=== PATIENT | female | born 1960 | race Caucasian/White ===

== ENCOUNTER → 2019-10-30 14:55 | Outpatient (BNVA) | payer MEDICARE, OTHER, SELFPAY | PROVIDERS: Referring Provider Dermatology; Visit Provider Internal Medicine Cardiovascular Disease | DX: E78.5 Hyperlipidemia, unspecified (principal); I25.10 Atherosclerotic heart disease of native coronary artery without angina pectoris; E11.9 Type 2 diabetes mellitus without complications | CPT/HCPCS: 80053; 80061 ==

== ENCOUNTER 2019-11-29 09:48 | Outpatient (CLI) | payer MEDICARE, OTHER, SELFPAY ==
[2019-11-29 10:43] LABS: Creatinine Urine, Random 60 mg/dL (28-217); Microalbumin Random Urine 14 ug/dL (0-20)
[2019-11-29 10:53] LABS: Microalbum Creatinine Ratio Ur 233 mg/dL (0-20)
[2019-11-29 12:01] LABS: Estmated Average Glucose 226; Hemoglobin A1C 9.5 % (4.0-6.0)
== END 2019-11-29 09:49 | disposition home or self-care (01) ==
LOC: LAB 09:54
PROVIDERS: Visit Provider Internal Medicine
DX: E11.9 Type 2 diabetes mellitus without complications (principal)
CPT/HCPCS: 36415; 82044; 83036

== ENCOUNTER → 2019-12-04 09:02 | Outpatient (BNVA) | payer MEDICARE, OTHER, SELFPAY | PROVIDERS: Visit Provider Internal Medicine | DX: E11.40 Type 2 diabetes mellitus with diabetic neuropathy, unspecified (principal); Z78.9 Other specified health status; E11.29 Type 2 diabetes mellitus with other diabetic kidney complication; E11.65 Type 2 diabetes mellitus with hyperglycemia; R80.9 Proteinuria, unspecified; E16.0 Drug-induced hypoglycemia without coma; T38.3X5A Adverse effect of insulin and oral hypoglycemic [antidiabetic] drugs, initial encounter; E11.42 Type 2 diabetes mellitus with diabetic polyneuropathy; E11.59 Type 2 diabetes mellitus with other circulatory complications; I25.10 Atherosclerotic heart disease of native coronary artery without angina pectoris; K76.0 Fatty (change of) liver, not elsewhere classified; E78.2 Mixed hyperlipidemia; I10 Essential (primary) hypertension; E66.01 Morbid (severe) obesity due to excess calories; Z68.41 Body mass index [BMI] 40.0-44.9, adult | CPT/HCPCS: 99205 ==

== ENCOUNTER → 2019-12-26 09:48 | Outpatient (BNVA) | payer MEDICARE, OTHER, SELFPAY | PROVIDERS: Referring Provider Dermatology; Visit Provider Dermatology | DX: L71.9 Rosacea, unspecified (principal); L82.1 Other seborrheic keratosis; D23.10 Other benign neoplasm of skin of unspecified eyelid, including canthus | CPT/HCPCS: 67700; 99203 ==

== ENCOUNTER → 2020-01-11 09:58 | Outpatient (BNVA) | payer MEDICARE, OTHER, SELFPAY | PROVIDERS: Visit Provider Internal Medicine | DX: E11.29 Type 2 diabetes mellitus with other diabetic kidney complication (principal); E11.42 Type 2 diabetes mellitus with diabetic polyneuropathy; E11.59 Type 2 diabetes mellitus with other circulatory complications; I10 Essential (primary) hypertension; I25.10 Atherosclerotic heart disease of native coronary artery without angina pectoris; E11.65 Type 2 diabetes mellitus with hyperglycemia; E66.01 Morbid (severe) obesity due to excess calories; Z68.41 Body mass index [BMI] 40.0-44.9, adult; E78.2 Mixed hyperlipidemia; K76.0 Fatty (change of) liver, not elsewhere classified; R80.9 Proteinuria, unspecified; Z78.9 Other specified health status | CPT/HCPCS: 99214 ==

== ENCOUNTER → 2020-02-20 15:22 | Outpatient (BNVA) | payer MEDICARE, OTHER, SELFPAY | PROVIDERS: Visit Provider Specialist | DX: M79.642 Pain in left hand (principal) | CPT/HCPCS: 73130 ==

== ENCOUNTER → 2020-02-25 13:03 | Outpatient (BNVA) | payer MEDICARE, OTHER, SELFPAY | PROVIDERS: Visit Provider Specialist | DX: Z11.59 Encounter for screening for other viral diseases (principal) | CPT/HCPCS: 87635 ==

== ENCOUNTER 2020-02-29 05:59 | Day surgery (SDC) | payer MEDICARE, OTHER, SELFPAY ==
[2020-02-28 13:41] VITALS: BMI 39.9
[2020-02-29 06:24] VITALS: BP 181/87; PULSE 67; RESP 18; TEMP 36.3; O2SAT 94
[2020-02-29] MEDS: sodium chloride 0.9% 1,000 ML 30 ML IV (06:50)
[2020-02-29 06:52] LABS: Glucose Point of Care 193 mg/dL (70-110)
[2020-02-29 06:54] LABS: Basophils # 0.1 10^3/uL (0.0-0.1); Eosinophils # 0.7 10^3/uL (0.0-0.8); Eosinophils % 11.9 %; Hematocrit 42.7 % (37.0-47.0); Hemoglobin 13.8 g/dL (11.5-15.3); Lymphocytes % 32.6 %; Mean Corpuscular HGB Conc 32.3 g/dL (30.0-36.0); Mean Corpuscular Hemoglobin 29.7 pg (28.0-34.0); Mean Corpuscular Volume 91.8 fL (81-99); Mean Platelet Volume 9.5 fL (7.4-10.4); Monocytes # 0.6 10^3/uL (0.2-0.9); Monocytes % 9.9 %; Neutrophils # 2.74 10^3/uL (1.8-7.7); Neutrophils % 44.4 %; Nucleated Red Blood Cells % 0 %; Platelet Count 160 10^3/cmm (130-400); Red Blood Count 4.65 10^6/uL (4.1-5.3); Red Cell Distribution Width 12.8 % (12.1-15.1); White Blood Count 6.2 10^3/uL (4.0-10.0)
--- NOTE | 2020-02-29 06:55 | P.ANESASSM_ITS ---
Pre-Anesthetic Assessment Pre-Anesthetic Assessment: Height/Weight: Height 1.65 m Weight 108.862 kg Temp Pulse Resp BP Pulse Ox 97.4 F L 67 18 181/87 94 02/29/20 06:24 02/29/20 06:24 02/29/20 06:24 02/29/20 06:24 02/29/20 06:24 Preop Diagnosis: Left index and long finger triggering Proposed Procedure: Operation Date: 02/29/20 07:00 Proposed Procedures p Left index and middle finger Trigger Finger Release 36416 M65.30(Left) - Laura Sandoval MD Last intake: Intake Last Liquid Date 02/28/20 Last Liquid Time 23:30 Last Solid Date 02/28/20 Last Solid Time 18:30 Social: Social History: No alcohol and No tobacco Exam: Pre-Anes Outpt Exam: alert, oriented x 3, clear to auscultation bilaterally and regular rate & rhythm Airway: Submandibular: Other (Very limited TMD) Cervical ROM: Other (limited ) MP: 4 Pulmonary: Pulmonary: Sleep apnea CV/HEM: CV/HEM: CAD and HTN : : None reported Hepatic: Hepatic: None reported GI: GI: None reported Metabolic: Metabolic: DM and Morbid obesity Musc/skel: Musc/skel: None reported Neuropsych: Neuropsych: Anxiety Anesthetic Plan: ASA status: 3 Anesthesia: MAC PFSH Anesthesia PFSH: Medical History (Updated 02/22/20 @ 11:01 by Laura Sandoval MD) Coronary artery disease Hyperlipidemia Hypertension Myocardial infarction Surgical History H/O section History of coronary artery stent placement History of hysterectomy Family History Father Myocardial infarction Other CAD (coronary artery disease) Social History Smoking and tobacco status: never smoked Alcohol intake: never Data Anesthesia CBC & Chem 7: 02/29/20 06:23 02/29/20 06:23 Other Labs: Laboratory Results - last 48 hr 02/29/20 02/29/20 06:23 06:49 WBC 6.2 RBC 4.65 Hgb 13.8 Hct 42.7 MCV 91.8 MCH 29.7 MCHC 32.3 RDW 12.8 Plt Count 160 MPV 9.5 Neut % (Auto) 44.4 Lymph % (Auto) 32.6 [place] % (Auto) 9.9 Eos % (Auto) 11.9 Baso % (Auto) 1.0 Neut # (Auto) 2.74 Lymph # (Auto) 2.0 [place] # (Auto) 0.6 Eos # (Auto) 0.7 Baso # (Auto) 0.1 Nucleated RBC % (auto) 0 Nucleated RBCs # 0.0 POC Glucose 193 Cardiac Studies: No Data to Display
--- NOTE | 2020-02-29 06:57 | W.PM.OPSUD ---
Surgery/Procedure H&P Update DATE OF PROCEDURE: February 29, 2020 DATE H&P PERFORMED: 02/20/20 H&P UPDATE INFORMATION: I have reviewed H&P completed within last 30 days, I have examined patient prior to procedure, No changes to prior documentation and H&P is in [facility] [place] [facility] EMR on date indicated PREOP DIAGNOSIS: Left index and long finger triggering PLANNED PROCEDURE: Operation Date: 02/29/20 07:00 Proposed Procedures p Left index and middle finger Trigger Finger Release 46578 M65.30(Left) - Laura Sandoval MD Related Problem List Diagnoses (1) Acquired trigger finger of left middle finger: (2) Acquired trigger finger of left index finger:
[2020-02-29] MEDS: CELEcoxib 200 mg Capsule 400 MG PO (07:06)
[2020-02-29 07:34] LABS: Alanine Aminotransferase 103 U/L (0-33); Albumin Level 3.8 g/dL (3.5-5.2); Alkaline Phosphatase 119 IU/L (35-105); Blood Urea Nitrogen 20 mg/dL (8-23); Calcium 9.1 mg/dL (8.5-10.5); Carbon Dioxide 23 mmol/L (22-29); Chloride 101 mmol/L (98-107); Glomerular Filtration Rate 101.6 mL/min (90-130); Glucose 199 mg/dL (65-115); Osmolality Calculated 292 mOsm/kg (285-295); Sodium 137 mmol/L (136-145); Total Bilirubin 0.4 mg/dL (0.15-1.2); Total Protein 6.8 g/dL (6.6-8.7)
[2020-02-29 07:38] LABS: Anion Gap 17.4 (5-19); Aspartate Amino Transferase 88 U/L (0-32); Potassium 4.4 mmol/L (3.5-5.1)
[2020-02-29 08:18] VITALS: BP 170/87; PULSE 56; RESP 16; TEMP 36.3; O2SAT 95
[2020-02-29 08:24] VITALS: BP 146/73; PULSE 55; RESP 18; O2SAT 96
--- NOTE | 2020-02-29 08:28 | P.OP_ITS ---
Operative Report Date of procedure: February 29, 2020 Pre-op Diagnosis: Left index and long finger triggering Post-op diagnosis: same Procedure Done: Trigger finger release left long and index fingers Pathology: none sent Surgeon: Laura Sandoval Buffing Turner And Counter: None Anesthesia: MAC (With Anu block) Estimated blood loss (mL): 2 Tourniquet time (min): 42 Tourniquet time: At 250 mmHg IV fluids (mL): 900 Urine output (mL): 0 Urine output: No Jeter Complications: None Findings: Significant compression across the flexor tendons of the index and long fingers. Condition: stable Disposition: same day Brief History: This 60-year-old woman presented with complaints of triggering of the left index and middle fingers. She had had previous trigger finger releases elsewhere on other fingers. She wished to proceed with the release. Risks and complications were discussed. Consents were signed. The patient was consented for the surgical procedure. Procedure: Patient was brought to the operating theater. She was placed on the operating room table. A [place] block was administered without difficulty. Patient tolerated it well. 2 g of Ancef was administered prophylactically. A tourniquet was placed high on the arm and was elevated for the [place] block. This followed exsanguination of the arm. Tourniquet time was 42 minutes. Surgical pause was performed prior to commencement of the surgical procedure. At the time of the surgical pause we identified the site and side of surgery. We also identified the patient's identity and appropriate administration of IV antibiotics. Following the surgical pause, an incision was made along the distal palmar crease beneath the index and long fingers. Dissection continued through the skin to the subcutaneous tissues using a scalpel. Blunt dissection was then utilized to spread soft tissues and allow access to the A1 wm. Each A1 wm was i dentified. It was then incised longitudinally and sharply using a knife. This was accomplished without difficulty and atraumatically. Once the A1 pulleys were released, tendons were brought up out of the wound and evaluated. There were no gross masses on the tendons, and there was no further triggering. Tendons were returned to normal position. We then irrigated the wound and subsequently closed it with 3-0 nylon with an interrupted mattress type suture. Following closure of the wound, the wound was injected with 3 mL of bupivacaine into the subcutaneous tissues as a local anesthetic. Sterile dressing was then placed consisting of Telfa, Tegaderm, fluffed fluffs, sterile soft roll, and an Jim wrap. The patient was returned to recovery in satisfactory condition. She will be discharged home to follow-up with me in the office. There were no complications and no specimens. Associated Problem List Diagnoses (1) Acquired trigger finger of left middle finger: (2) Acquired trigger finger of left index finger:
[2020-02-29 08:43] VITALS: BP 142/74; PULSE 64; RESP 22; O2SAT 94
[2020-02-29] MEDS: HYDROcodone-acetaminophen 5-325 mg Tablet 1 TAB PO (08:57)
--- NOTE | 2020-02-29 14:37 | ANE.PACU2 ---
Inpatient post-anesthesia follow up: Airway intact: Yes Vital signs: Temperature 97.3 F Pulse Rate 64 Respiratory Rate 22 Blood Pressure 142/74 Pulse Oximetry 94 Oxygen Delivery Me thod Room Air Oxygen Flow Rate 3 Fraction of Inspir ed Oxygen Hydration adequate: Yes Nausea and vomiting: No Pain level: 3 Mental status: Baseline
== END 2020-02-29 09:02 | disposition home or self-care (01) ==
PROVIDERS: Visit Provider Specialist
PROC: (CPT 26055; principal; 2020-02-29 07:00)
DX: M65.332 Trigger finger, left middle finger (principal); M65.322 Trigger finger, left index finger; I25.10 Atherosclerotic heart disease of native coronary artery without angina pectoris; I10 Essential (primary) hypertension; E11.9 Type 2 diabetes mellitus without complications; I25.2 Old myocardial infarction; E66.01 Morbid (severe) obesity due to excess calories; Z68.39 Body mass index [BMI] 39.0-39.9, adult
CPT/HCPCS: 26055; 12345; 36415; 36416; 80053; 82962; 85025; 96374; 96375; J0131; J0690; J2250; J2704; J3010; J3490; J7030

== ENCOUNTER 2020-04-08 09:17 | Outpatient (CLI) | payer MEDICARE, OTHER, SELFPAY ==
--- NOTE | 2020-04-08 09:37 | US_ITS ---
WS: [id number] Complete ABDOMINAL ULTRASOUND HISTORY: ELEVATED LFT'S COMPARISON: None available. Technically very difficult and limited evaluation due to body habitus. Liver: 17.5 cm in length. Mildly enlarged liver with hepatic steatosis. The entire liver is not well visualized. No bile duct dilatation. Gallbladder: Normally distended with no gallstones, wall thickening or pericholecystic fluid. Gallbladder wall thickness: 0.3 cm. Pancreas: Poorly visualized. No abnormality identified. CBD: 0.3 cm. Right kidney: 12.4 cm x 5.0 cm x 5.9 cm. No mass, cortical thickening or hydronephrosis. Left kidney: 13.6 cm x 5.8 cm x 5.5 cm. No mass, cortical thickening or hydronephrosis. Spleen: Normal size and echogenicity. Abdominal aorta and IVC are within normal limits. No ascites. US/US abdomen complete* [id number] IMPRESSION: 1. Mild hepatic steatosis and hepatomegaly. The entire liver is not well visua lized. 2. No abnormalities are identified quality
== END 2020-04-08 09:18 | disposition home or self-care (01) ==
LOC: RAD 09:29
DX: R94.5 Abnormal results of liver function studies (principal); K76.0 Fatty (change of) liver, not elsewhere classified; R16.0 Hepatomegaly, not elsewhere classified
CPT/HCPCS: 76700

== ENCOUNTER → 2020-04-16 10:09 | Outpatient (BNVA) | payer MEDICARE, OTHER, SELFPAY | PROVIDERS: Visit Provider Internal Medicine | DX: E11.29 Type 2 diabetes mellitus with other diabetic kidney complication (principal); R80.9 Proteinuria, unspecified; E11.319 Type 2 diabetes mellitus with unspecified diabetic retinopathy without macular edema; E11.42 Type 2 diabetes mellitus with diabetic polyneuropathy; E11.59 Type 2 diabetes mellitus with other circulatory complications; I25.10 Atherosclerotic heart disease of native coronary artery without angina pectoris; E11.65 Type 2 diabetes mellitus with hyperglycemia; E66.01 Morbid (severe) obesity due to excess calories; Z68.41 Body mass index [BMI] 40.0-44.9, adult; E78.2 Mixed hyperlipidemia; I10 Essential (primary) hypertension; K76.0 Fatty (change of) liver, not elsewhere classified | CPT/HCPCS: 99214 ==

== ENCOUNTER 2020-05-19 07:53 | Outpatient (CLI) | payer MEDICARE, OTHER, SELFPAY ==
--- NOTE | 2020-05-19 07:59 | MM_ITS ---
WS: [id number] BILATERAL DIGITAL SCREENING MAMMOGRAPHY WITH CAD CLINICAL INFORMATION: SCREENING HISTORY: Screening mammogram. No current complaints. COMPARISON: TECHNIQUE: Bilateral CC and MLO views. FINDINGS: Scattered fibroglandular densities bilaterally. No suspicious focal mass, asymmetry, calcifications, or architectural distortion. No evidence of malignancy. Punctate calcifications. Vascular calcificati ons bilaterally. MM/[place] [id number] IMPRESSION: BI-RADS: 2-Benign FOLLOW UP: 1 Year Follow-up Recommend return to annual screening mammography.
== END 2020-05-19 07:54 | disposition home or self-care (01) ==
LOC: RADSHAW 07:56
DX: Z12.31 Encounter for screening mammogram for malignant neoplasm of breast (principal)
CPT/HCPCS: 77067

== ENCOUNTER → 2020-09-26 15:44 | Outpatient (BNVA) | payer MEDICARE, OTHER, SELFPAY | PROVIDERS: PCP Clinical Nurse Specialist Adult Health; Visit Provider Surgery | DX: Z01.812 Encounter for preprocedural laboratory examination (principal); Z20.822 Contact with and (suspected) exposure to COVID-19 | CPT/HCPCS: 87635 ==

== ENCOUNTER 2020-10-01 06:19 | Day surgery (SDC) | payer MEDICARE, OTHER, SELFPAY ==
[2020-09-29 12:52] VITALS: BMI 38.7
[2020-10-01 06:50] VITALS: BP 202/82; PULSE 61; RESP 18; TEMP 36.2; O2SAT 97
--- NOTE | 2020-10-01 06:54 | W.PM.OPSFHP ---
Same Day Surgery H&P Indication for Procedure/HPI DATE OF PROCEDURE: October 01, 2020 CHIEF COMPLAINT/INDICATIONFOR SURGICAL PROCEDURE: Screening colonoscopy PREOP DIAGNOSIS: Screening colonoscopy PLANNED PROCEDRUE: Operation Date: 10/01/20 07:30 Proposed Procedures p Colonoscopy 55947 Z12.11(Not Applicable) - Lyndon Cabrera MD This is a 60 years old female patient with history of obesity of a current BMI of 30.4 and weighs 238 pounds and associated history of diabetic retinopathy, hypoglycemia due to insulin, fatty liver, uncontrolled diabetes mellitus with microalbuminuria, diabetic neuropathy, chronic artery disease due to type 2 diabetes mellitus, history of hypertension and hyperlipidemia. Patient is referred to me for screening colonoscopy last one she had when she was 49 years of age and was reported as normal. Per patient's description. Patient denies any bleeding per rectum or colon cancer history or nonintentional weight loss. Patient used to be on blood thinners for her coronary artery stent placement before 3 years but she was taken off per cardiac services. Interim history 10/01/2020 Patient comes today for screening colonoscopy ROS All systems have been reviewed negative except as per the above or per problem list Medications/Allergies* Home Medications Medication Instructions Recorded Confirmed Type albuterol sulfate 90 mcg/actuation 2 inh INHALATION Q6H PRN 11/02/19 10/01/20 History breath activated powder inhaler aspirin 81 mg tablet,delayed 81 mg PO DAILY 11/02/19 10/01/20 History release furosemide 40 mg tablet 40 mg PO DAILY PRN 11/02/19 10/01/20 History losartan 50 mg tablet 50 mg PO BID 11/02/19 10/01/20 History multivitamin 1 tab PO DAILY 11/02/19 10/01/20 History potassium chloride 10 mEq 10 meq PO DAILY PRN tab 11/02/19 10/01/20 History tablet,extended release pregabalin 50 mg capsule 50 mg PO DAILY PRN cap 11/02/19 10/01/20 History trazodone 50 mg tablet 50 mg PO DAILY PRN 11/02/19 10/01/20 History insulin regular hum U-500 conc See Rx Instructions SUBCUT .COMPLEX 01/29/20 10/01/20 History [Humulin R U-500 (Conc) Kwikpen] elderberry fruit and flower 1 ea PO DAILY 09/23/20 10/01/20 History calcium carb-mag ox-zinc gluc 1 tab PO DAILY 09/29/20 10/01/20 History metoprolol tartrate 25 mg PO BID 09/29/20 10/01/20 History Allergies/Adverse Reactions Allergy/AdvReac Type Severity Reaction Status Date / Time latex Allergy ALGY-Rash Verified 10/01/20 06:55 Hdbzewb-Non-Zzh Reductase AdvReac Unknown Verified 10/01/20 06:55 Inhibitor Pertinent History/Comorbid Conditions* Medical History (Updated 08/14/20 @ 10:58 by Lyndon Cabrera MD) Coronary artery disease Hyperlipidemia Hypertension Myocardial infarction Surgical History (Updated 12/04/19 @ 09:26 by Santos Arguello MD) H/O section History of coronary artery stent placement History of hysterectomy Family History (Updated 10/30/19 @ 14:06 by Janis Conde RN) CAD (coronary artery disease) Myocardial infarction Father Social History Smoking and tobacco status: never smoked Alcohol intake: never Pertinent Exam Findings alert, oriented x 3, clear to auscultation bilaterally, regular rate & rhythm and procedure specific exam findings (Abdominal examination nontender nondistended soft obese) BMI 39 Recommendations Surgery/Procedure today (Colonoscopy with possible biopsy) Other Plans: Plan of care; After thorough history and physical examination and reviewing the chart, plan to perform screening colonoscopy. I discussed with the patient in details the risks,benefits,alternatives and indications.The risk of aspiration, bleeding, soft tissue injury, perforation of the colon and other potential concomitant complications were explained to the patient in details,also the potential need for Laproscoy/Laparotomy to repair any related complications including but not limited to colectomy and or Closotomy.The patient understood this well and did agree to proceed. Rationale was carefully and clearly discussed with the patient.Appropriate informed consent have been reviewed and signed All questions have been answered and all concerns have been addressed to patient's satisfaction. Verbal and written Instructions were given to the patient for colonoscopy prep Coding Level of Care Code Acute Political Researcher for Natalee Doyle
[2020-10-01 07:06] LABS: Glucose Point of Care 208 mg/dL (70-110)
[2020-10-01] MEDS: sodium chloride 0.9% 1,000 ML 30 ML IV (07:10)
--- NOTE | 2020-10-01 07:29 | ANES.PREANE2 ---
Pre-Anesthetic Assessment Pre-Anesthetic Assessment: Height/Weight: Height 1.68 m Weight 108.862 kg Temp Pulse Resp BP Pulse Ox 97.2 F L 61 18 202/82 97 10/01/20 06:50 10/01/20 06:50 10/01/20 06:50 10/01/20 06:50 10/01/20 06:50 Preop Diagnosis: Screening colonoscopy Proposed Procedure: Operation Date: 10/01/20 07:30 Proposed Procedures p Colonoscopy 43524 Z12.11(Not Applicable) - Lyndon Cabrera MD Was Beta Alana taken within 24 hours: Yes Was Clonidine taken within 24 hours: N/A Last intake: Intake Last Liquid Date 09/30/20 Last Solid Date 09/29/20 Social: Social History: No alcohol and No tobacco Exam: Pre-Anes Outpt Exam: alert, oriented x 3, clear to auscultation bilaterally and regular rate & rhythm Airway: Submandibular: WNL Cervical ROM: WNL MP: 2 Dentition: Full CV/HEM: CV/HEM: CAD (stent), HTN and MA Metabolic: Metabolic: DM, Hyperlipidemia and Morbid obesity Anesthetic Plan: ASA status: 3 Anesthesia: MAC Risk of > 500 ml blood loss (7ml/kg in children): No PFSH Anesthesia PFSH: Medical History Coronary artery disease Hyperlipidemia Hypertension Myocardial infarction Surgical History H/O section History of coronary artery stent placement History of hysterectomy Family History Father Myocardial infarction Other CAD (coronary artery disease) Social History Smoking and tobacco status: never smoked Alcohol intake: never Data Anesthesia Other Labs: Laboratory Results - last 48 hr 10/01/20 07:01 POC Glucose 208 H Cardiac Studies: No Data to Display
[2020-10-01 07:54] VITALS: BP 123/66; PULSE 58; RESP 16; TEMP 36.6; O2SAT 95
[2020-10-01 08:09] VITALS: BP 125/61; PULSE 72; RESP 18; TEMP 36.6; O2SAT 98
--- NOTE | 2020-10-01 13:56 | ANE.PACU2 ---
Inpatient post-anesthesia follow up: Airway intact: Yes Vital signs: Temperature 97.8 F Pulse Rate 72 Respiratory Rate 18 Blood Pressure 125/61 Pulse Oximetry 98 Oxygen Delivery Me thod Room Air Oxygen Flow Rate Fraction of Inspir ed Oxygen Hydration adequate: Yes Nausea and vomiting: No Pain level: 1 Mental status: Baseline
== END 2020-10-01 08:20 | disposition home or self-care (01) ==
PROVIDERS: PCP Clinical Nurse Specialist Adult Health; Visit Provider Surgery
PROC: 0DJD8ZZ Inspection of Lower Intestinal Tract, Via Natural or Artificial Opening Endoscopic (ICD-10-PCS; CPT 45378; principal; 2020-10-01 07:30)
DX: Z12.11 Encounter for screening for malignant neoplasm of colon (principal); Z79.82 Long term (current) use of aspirin; I25.10 Atherosclerotic heart disease of native coronary artery without angina pectoris; E78.5 Hyperlipidemia, unspecified; I10 Essential (primary) hypertension; I25.2 Old myocardial infarction; Z82.49 Family history of ischemic heart disease and other diseases of the circulatory system
CPT/HCPCS: 36416; 82962; 96360; G0121; J2704; J7030

== ENCOUNTER 2020-11-21 10:08 | Outpatient (CLI) | payer MEDICARE, OTHER, SELFPAY ==
[2020-11-21 11:09] LABS: Creatinine Urine, Random 85 mg/dL (28-217); Microalbumin Random Urine 29 ug/dL (0-20)
[2020-11-21 11:13] LABS: Microalbum Creatinine Ratio Ur 341 mg/dL (0-20)
[2020-11-21 11:26] LABS: Alanine Aminotransferase 98 U/L (0-33); Alkaline Phosphatase 123 IU/L (35-105); Anion Gap 13.7 (5-19); Aspartate Amino Transferase 95 U/L (0-32); Blood Urea Nitrogen 22 mg/dL (8-23); Calcium 9.2 mg/dL (8.5-10.5); Carbon Dioxide 27 mmol/L (22-29); Chloride 102 mmol/L (98-107); Chol HDL Ratio 4.91 mg/dL (0.0-4.40); Cholesterol 211 mg/dL (0-200); Globulin 3.1 g/dL (1.3-4.6); Glomerular Filtration Rate 85.1 mL/min (90-130); Glucose 221 mg/dL (65-115); HDL Cholesterol 43 mg/dL (60-100); LDL Cholesterol Calculated 142 mg/dL (50-129); Osmolality Calculated 296 mOsm/kg (285-295); Potassium 4.7 mmol/L (3.5-5.1); Sodium 138 mmol/L (136-145); Total Bilirubin 0.5 mg/dL (0.15-1.2); Total Protein 7.1 g/dL (6.6-8.7); Triglycerides 131 mg/dL (0-150)
[2020-11-21 11:30] LABS: Estmated Average Glucose 220; Hemoglobin A1C 9.3 % (4.0-6.0)
== END 2020-11-21 10:09 | disposition home or self-care (01) ==
LOC: LAB 10:16
PROVIDERS: PCP Clinical Nurse Specialist Adult Health; Visit Provider Internal Medicine
DX: E11.29 Type 2 diabetes mellitus with other diabetic kidney complication (principal); E11.319 Type 2 diabetes mellitus with unspecified diabetic retinopathy without macular edema; E11.42 Type 2 diabetes mellitus with diabetic polyneuropathy; E11.65 Type 2 diabetes mellitus with hyperglycemia; E16.0 Drug-induced hypoglycemia without coma; R80.9 Proteinuria, unspecified; R94.5 Abnormal results of liver function studies; T38.3X5A Adverse effect of insulin and oral hypoglycemic [antidiabetic] drugs, initial encounter
CPT/HCPCS: 36415; 80053; 80061; 82044; 83036

== ENCOUNTER → 2021-05-12 10:20 | Outpatient (BNVA) | payer MEDICARE, OTHER, SELFPAY | PROVIDERS: PCP Clinical Nurse Specialist Adult Health; Visit Provider Internal Medicine | DX: E11.319 Type 2 diabetes mellitus with unspecified diabetic retinopathy without macular edema (principal); E11.29 Type 2 diabetes mellitus with other diabetic kidney complication; E11.65 Type 2 diabetes mellitus with hyperglycemia; E11.42 Type 2 diabetes mellitus with diabetic polyneuropathy; E11.59 Type 2 diabetes mellitus with other circulatory complications; K76.0 Fatty (change of) liver, not elsewhere classified; R80.9 Proteinuria, unspecified; I25.10 Atherosclerotic heart disease of native coronary artery without angina pectoris; E78.2 Mixed hyperlipidemia; E66.01 Morbid (severe) obesity due to excess calories; Z78.9 Other specified health status; Z68.41 Body mass index [BMI] 40.0-44.9, adult; Z79.4 Long term (current) use of insulin | CPT/HCPCS: 99214 ==

== ENCOUNTER → 2021-08-10 08:10 | Outpatient (BNVA) | payer MEDICARE, OTHER, SELFPAY | PROVIDERS: Visit Provider Internal Medicine | DX: E11.59 Type 2 diabetes mellitus with other circulatory complications (principal); E11.29 Type 2 diabetes mellitus with other diabetic kidney complication; E11.65 Type 2 diabetes mellitus with hyperglycemia; E11.42 Type 2 diabetes mellitus with diabetic polyneuropathy; E11.319 Type 2 diabetes mellitus with unspecified diabetic retinopathy without macular edema; I25.10 Atherosclerotic heart disease of native coronary artery without angina pectoris; R80.9 Proteinuria, unspecified; K76.0 Fatty (change of) liver, not elsewhere classified; E78.2 Mixed hyperlipidemia; E66.01 Morbid (severe) obesity due to excess calories; Z68.41 Body mass index [BMI] 40.0-44.9, adult; I11.0 Hypertensive heart disease with heart failure; Z78.9 Other specified health status; Z79.4 Long term (current) use of insulin | CPT/HCPCS: 99214 ==

== ENCOUNTER → 2022-01-19 07:44 | Outpatient (BNVA) | payer MEDICARE, OTHER, SELFPAY | PROVIDERS: PCP Clinical Nurse Specialist Adult Health; Visit Provider Clinical Nurse Specialist Adult Health | DX: E78.5 Hyperlipidemia, unspecified (principal); I10 Essential (primary) hypertension; E11.319 Type 2 diabetes mellitus with unspecified diabetic retinopathy without macular edema; E11.59 Type 2 diabetes mellitus with other circulatory complications; E66.01 Morbid (severe) obesity due to excess calories; E78.2 Mixed hyperlipidemia; I25.10 Atherosclerotic heart disease of native coronary artery without angina pectoris; K76.0 Fatty (change of) liver, not elsewhere classified; Z68.41 Body mass index [BMI] 40.0-44.9, adult; Z78.9 Other specified health status; E16.0 Drug-induced hypoglycemia without coma; T38.3X5A Adverse effect of insulin and oral hypoglycemic [antidiabetic] drugs, initial encounter | CPT/HCPCS: 80053; 80061; 83036 ==

== ENCOUNTER → 2022-01-20 10:31 | Outpatient (BNVA) | payer MEDICARE, OTHER, SELFPAY | PROVIDERS: PCP Clinical Nurse Specialist Adult Health; Visit Provider Internal Medicine | DX: E11.59 Type 2 diabetes mellitus with other circulatory complications (principal); E11.29 Type 2 diabetes mellitus with other diabetic kidney complication; E11.65 Type 2 diabetes mellitus with hyperglycemia; E11.319 Type 2 diabetes mellitus with unspecified diabetic retinopathy without macular edema; E11.42 Type 2 diabetes mellitus with diabetic polyneuropathy; I25.10 Atherosclerotic heart disease of native coronary artery without angina pectoris; R80.9 Proteinuria, unspecified; E78.5 Hyperlipidemia, unspecified; E78.2 Mixed hyperlipidemia; K76.0 Fatty (change of) liver, not elsewhere classified; E66.01 Morbid (severe) obesity due to excess calories; Z68.41 Body mass index [BMI] 40.0-44.9, adult; Z78.9 Other specified health status; Z79.4 Long term (current) use of insulin; Z79.84 Long term (current) use of oral hypoglycemic drugs | CPT/HCPCS: 99214 ==

== ENCOUNTER → 2022-04-14 08:50 | Outpatient (BNVA) | payer MEDICARE, OTHER, SELFPAY | PROVIDERS: PCP Clinical Nurse Specialist Adult Health; Visit Provider Clinical Nurse Specialist Adult Health | DX: E16.0 Drug-induced hypoglycemia without coma (principal); T38.3X5A Adverse effect of insulin and oral hypoglycemic [antidiabetic] drugs, initial encounter; Z78.9 Other specified health status; K76.0 Fatty (change of) liver, not elsewhere classified; E11.29 Type 2 diabetes mellitus with other diabetic kidney complication; E11.65 Type 2 diabetes mellitus with hyperglycemia; R80.9 Proteinuria, unspecified; Z91.89 Other specified personal risk factors, not elsewhere classified; E66.01 Morbid (severe) obesity due to excess calories; Z68.41 Body mass index [BMI] 40.0-44.9, adult; I10 Essential (primary) hypertension; E78.5 Hyperlipidemia, unspecified; E78.2 Mixed hyperlipidemia | CPT/HCPCS: 80053; 80061; 83036; 85025 ==

== ENCOUNTER → 2022-07-09 08:15 | Outpatient (BNVA) | payer MEDICARE, OTHER, SELFPAY | PROVIDERS: PCP Clinical Nurse Specialist Adult Health; Visit Provider Clinical Nurse Specialist Adult Health | DX: E11.29 Type 2 diabetes mellitus with other diabetic kidney complication (principal); E11.59 Type 2 diabetes mellitus with other circulatory complications; E11.65 Type 2 diabetes mellitus with hyperglycemia; R80.9 Proteinuria, unspecified; E78.5 Hyperlipidemia, unspecified | CPT/HCPCS: 80053; 80061; 82043; 83036 ==

== ENCOUNTER → 2022-07-14 12:58 | Outpatient (BNVA) | payer MEDICARE, OTHER, SELFPAY | PROVIDERS: PCP Clinical Nurse Specialist Adult Health; Visit Provider Internal Medicine | DX: E11.42 Type 2 diabetes mellitus with diabetic polyneuropathy (principal); E11.29 Type 2 diabetes mellitus with other diabetic kidney complication; E11.65 Type 2 diabetes mellitus with hyperglycemia; E11.319 Type 2 diabetes mellitus with unspecified diabetic retinopathy without macular edema; E11.59 Type 2 diabetes mellitus with other circulatory complications; R80.9 Proteinuria, unspecified; E78.2 Mixed hyperlipidemia; I25.10 Atherosclerotic heart disease of native coronary artery without angina pectoris; K76.0 Fatty (change of) liver, not elsewhere classified; E66.01 Morbid (severe) obesity due to excess calories; Z68.41 Body mass index [BMI] 40.0-44.9, adult; Z78.9 Other specified health status; Z79.4 Long term (current) use of insulin; Z79.84 Long term (current) use of oral hypoglycemic drugs | CPT/HCPCS: 99214 ==

== ENCOUNTER 2022-08-04 13:54 | Outpatient (CLI) | payer MEDICARE, OTHER, SELFPAY ==
--- NOTE | 2022-08-04 14:30 | USCV_ITS ---
Romi Salmeron Age: 62 Gender: F : 1960 Exam Date: 08/04/2022 14:36 Ordering Phys: Gracie West MD ([email or web address]) Technologist: SUSAN Exam Location: [facility] [place] Indication: MURMUR BP: 162 / 89 HR: 66 Rhythm: Sinus Technical Quality: Adequate MEASUREMENTS (Male / Female) Normal Values 2D ECHO LVOT Diameter 2.0 cm LV Ejection Fraction MOD 2C 59.7 % LV Ejection Fraction 2C AL 59.0 % LA Diameter 4.0 cm LA Width 3.7 cm LA Height 6.0 cm RA Width 3.4 cm RA Height 5.3 cm Aorta at Sinotubular Diameter 2.2 cm IVC Diameter 1.8 cm M-MODE Aortic Annulus Diameter 3.1 cm LA Ao Ratio MM 1.2 MV E Point Septal Separation 0.4 cm DOPPLER AV Peak Velocity 165.8 cm/s LVOT Peak Velocity 148.0 cm/s AV Area Cont Eq vti 2.8 cm squared AV Area Cont Eq pk 2.8 cm squared MV Peak Velocity 150.0 cm/s MV Area PHT 2.5 cm squared Mitral E to A Ratio 0.6 MV E' Velocity 51.5 cm/s Mitral E to MV E' Ratio 11.0 Mitral E to LV E' Lateral Ratio 10.1 Mitral E to LV E' Septal Ratio 12.3 TR Peak Velocity 198.8 cm/s TR Peak Gradient 15.8 mmHg TR Mean Velocity 171.0 cm/s TR Mean Gradient 12.1 mmHg TR Velocity Time Integral 67.0 cm TV Peak E Velocity 72.0 cm/s Right Atrial Pressure 3.0 mmHg Pulmonary Artery Systolic Pressu 18.8 mmHg PV Peak Velocity 123.0 cm/s RV Acceleration Time 0.1 s RV Ejection Time 0.3 s RV AcT/ET 0.4 FINDINGS Left Ventricle Normal left ventricular size and systolic function, EF 64 %. No regional wall motion abnormalities. Grade I/IV diastolic dysfunction (abnormal relaxation filling pattern), normal to mildly elevated filling pressures. Right Ventricle The right ventricle is normal in size and function. Right Atrium The right atrium is normal in size. Left Atrium Mildly increased left atrial size. Mitral Valve Thickened mitral valve. Mild mitral annular calcification. Trace mitral valve regurgitation. Aortic Valve Thickened aortic valve. Tricuspid Valve No gross abnormalities noted Pulmonic Valve No gross abnormalities noted Pericardium Normal pericardium without effusion. Aorta Normal ascending aorta dimension. IVC Normal inferior vena cava. CONCLUSIONS Normal left ventricular size and systolic function, EF 64 %. No regional wall motion abnormalities. Grade I/IV diastolic dysfunction (abnormal relaxation filling pattern), normal to mildly elevated filling pressures. Mildly increased left atrial size. Features of aortic valve sclerosis Thickened mitral valve. Mild mitral annular calcification. Trace mitral valve regurgitation. There is no pericardial effusion. There are no intracardiac masses. No similar previous studies are available for comparison Dr Gracie West MD [facility] (Electronically Signed) Final Date: 07 August 2022 16:08 S
== END 2022-08-04 13:55 | disposition home or self-care (01) ==
LOC: RAD 13:58
PROVIDERS: PCP Clinical Nurse Specialist Adult Health; Visit Provider Internal Medicine Cardiovascular Disease
DX: R01.1 Cardiac murmur, unspecified (principal); R06.09 Other forms of dyspnea; I05.9 Rheumatic mitral valve disease, unspecified; E11.59 Type 2 diabetes mellitus with other circulatory complications; I25.10 Atherosclerotic heart disease of native coronary artery without angina pectoris; I10 Essential (primary) hypertension; E78.2 Mixed hyperlipidemia; E11.29 Type 2 diabetes mellitus with other diabetic kidney complication; E11.65 Type 2 diabetes mellitus with hyperglycemia; R80.9 Proteinuria, unspecified; G47.33 Obstructive sleep apnea (adult) (pediatric); E66.01 Morbid (severe) obesity due to excess calories; Z68.41 Body mass index [BMI] 40.0-44.9, adult
CPT/HCPCS: 93306; 99215

== ENCOUNTER → 2023-01-12 10:21 | Outpatient (BNVA) | payer MEDICARE, OTHER, SELFPAY | PROVIDERS: PCP Clinical Nurse Specialist Adult Health; Visit Provider Clinical Nurse Specialist Adult Health | DX: I10 Essential (primary) hypertension (principal); E78.5 Hyperlipidemia, unspecified; E11.29 Type 2 diabetes mellitus with other diabetic kidney complication; E11.42 Type 2 diabetes mellitus with diabetic polyneuropathy; E11.65 Type 2 diabetes mellitus with hyperglycemia; R80.9 Proteinuria, unspecified | CPT/HCPCS: 80053; 80061; 82043; 83036 ==

== ENCOUNTER → 2023-01-13 07:50 | Outpatient (BNVA) | payer MEDICARE, OTHER, SELFPAY | PROVIDERS: PCP Clinical Nurse Specialist Adult Health; Visit Provider Internal Medicine | DX: E11.59 Type 2 diabetes mellitus with other circulatory complications; I25.10 Atherosclerotic heart disease of native coronary artery without angina pectoris; E78.5 Hyperlipidemia, unspecified; E11.29 Type 2 diabetes mellitus with other diabetic kidney complication; E11.65 Type 2 diabetes mellitus with hyperglycemia; R80.9 Proteinuria, unspecified; E78.2 Mixed hyperlipidemia; K76.0 Fatty (change of) liver, not elsewhere classified; E66.01 Morbid (severe) obesity due to excess calories; Z68.41 Body mass index [BMI] 40.0-44.9, adult; Z78.9 Other specified health status; Z79.84 Long term (current) use of oral hypoglycemic drugs | CPT/HCPCS: 99214 ==

== ENCOUNTER → 2023-01-20 10:04 | Outpatient (BNVA) | payer MEDICARE, OTHER, SELFPAY | PROVIDERS: PCP Clinical Nurse Specialist Adult Health; Visit Provider Internal Medicine Cardiovascular Disease | DX: G47.33 Obstructive sleep apnea (adult) (pediatric) (principal); I10 Essential (primary) hypertension; E78.2 Mixed hyperlipidemia; I25.10 Atherosclerotic heart disease of native coronary artery without angina pectoris; R94.5 Abnormal results of liver function studies; E66.01 Morbid (severe) obesity due to excess calories; Z68.41 Body mass index [BMI] 40.0-44.9, adult; E11.29 Type 2 diabetes mellitus with other diabetic kidney complication; E11.65 Type 2 diabetes mellitus with hyperglycemia; R80.9 Proteinuria, unspecified; Z79.4 Long term (current) use of insulin | CPT/HCPCS: 99214 ==

== ENCOUNTER 2023-01-27 06:36 | Observation (INO) | payer MEDICARE, OTHER, SELFPAY ==
[2023-01-27 06:37] VITALS: BP 139/83; PULSE 85; RESP 18; O2SAT 93; BMI 35.5
--- NOTE | 2023-01-27 06:40 | XRR_ITS ---
PROCEDURE INFORMATION: Exam: XR Chest Exam date and time: 01/27/2023 7:03 AM Age: 63 years old Clinical indication: Cough and dyspnea; Additional info: Dyspnea/cough TECHNIQUE: Imaging protocol: Radiologic exam of the chest. Views: 1 view. COMPARISON: No relevant prior studies available. FINDINGS: Lungs: Unremarkable. No consolidation. Pleural spaces: Unremarkable. No pleural effusion. No pneumothorax. Heart/Mediastinum: Unremarkable. No cardiomegaly. Bones/joints: Unremarkable. XR/XR chest 1V portable [id number] IMPRESSION: No acute findings.
--- NOTE | 2023-01-27 06:40 | W.ED.ARRPALP ---
HPI - Arrhythmia/Palpitations General: Chief Complaint: Arrhythmia/Palpitations Stated Complaint: A-fib Time Seen by Provider: 01/27/23 06:39 Source: patient Mode of arrival: EMS History of Present Illness: 63-year-old female known history of coronary artery disease and diabetes mellitus. Presents this morning to the emergency room with complaints of racing heart rate and chest discomfort accompanied by shortness of breath that began earlier this morning. EMS gave the patient 20 mg of IV Cardizem in the field and when she arrives here her rate is well controlled. Model [employer]aster reported that her rate was 150 on the scene. Became controlled in the 70s and 80s after 20 mg of IV Cardizem she says she feels much better. She previously had a cardiac stent in her LAD. She has not had any significant angina or chest discomfort since that was placed in [place]. She had a stress test in January 2019 that showed an ejection fraction of 88% and a normal stress test. MD complaint: rapid heart beat and heart racing Onset (ago): minute(s) Duration: intermittent Context: occurred during rest Associated symptoms: Deny anxiety, cough, diaphoresis, muscle cramps, nausea, paresthesias, pre-syncope, sense of impending doom, short of breath, syncope or vomiting Review of Systems Const: Denies: diaphoresis Card: Denies: syncope or pre-syncope Resp: Denies: dyspnea GI: Denies: nausea or vomiting : Denies: dysuria, urinary frequency or urinary urgency Musc: Denies: muscle cramps Skin/Breast: Denies: rash Psych: Denies: anxiety PFSH ED PFSH: Medical History Coronary artery disease Encounter for screening colonoscopy Repeat screening colonoscopy in 10 years Hyperlipidemia Hypertension Myocardial infarction Rosacea Surgical History H/O section History of carpal tunnel release 2020 History of coronary artery stent placement History of hysterectomy Family History Father Myocardial infarction Other CAD (coronary artery disease) Social History Smoking and tobacco/nicotine status: never used tobacco/nicotine Alcohol intake: never Substance/Drug Use: never Physical Exam Const: GENERAL APPEARANCE: cooperative and comfortable ORIENTATION/CONSCIOUSNESS: Yes awake, Yes oriented to person, Yes oriented to place and Yes oriented to time HENMT: COMMON NORMALS: normocephalic, atraumatic and hearing grossly normal bilaterally HEAD & SCALP: normocephalic and atraumatic Resp: COMMON NORMALS: normal respiratory effort, No retractions, No use of accessory muscles and clear to auscultation bilaterally AUSCULTATION: clear to auscultation bilaterally Cardio: COMMON NORMALS: regular rate and No murmurs present (Cardio) RATE: regular rate RHYTHM: abnormal rhythm irregularly irregular GI: COMMON NORMALS: Soft to palpation and No hepatosplenomegaly present AUSCULTATION: Yes normoactive bowel sounds PALPATION: Yes Soft to palpation, No Tenderness to palpation present (GI), No Guarding due to palpation present (GI) and Yes No hepatosplenomegaly present Extremity: COMMON NORMALS: normal to inspection, capillary refill normal and no calf tenderness GENERAL: Yes edema (Trace) Neuro: SENSORIUM/ORIENTATION: Yes oriented to person, Yes oriented to place and Yes oriented to time Skin: COMMON NORMALS: no rashes or lesions noted GENERAL SKIN EXAM: no rashes or lesions noted Course Vital Signs: Vital signs: Vital Signs Pulse Rate 85 01/27/23 07:34 Respiratory Rate 24 H 01/27/23 07:34 Blood Pressure 119/69 01/27/23 07:34 Pulse Oximetry 92 01/27/23 07:34 Oxygen Delivery Me thod Room Air 01/27/23 07:34 MDM - Arrhythmia/Palpitations Medical Decision Making New onset A-fib, still in atrial fibrillation but rate is controlled. EKG shows A-fib no acute ST changes. No acute changes chest x-ray pending radiology over read. EMS gave her 20 Cardizem IV I did give her her morning carvedilol which she typically takes 12-1/2 twice daily. Rate remains controlled she is not having any chest pain now. Will place on observation. First troponin was 16 serial troponins. Discussed with Dr. Vargas orders written for CSU. Medical Records I reviewed the patient's medical records. Lab Data I reviewed the patient's lab results. 01/27/23 06:43 01/27/23 06:43 Laboratory Results WBC 5.43 10^3/uL (3.29-11.43) 01/27/23 06:43 RBC 5.04 10^6/uL (3.85-5.65) 01/27/23 06:43 Hgb 14.90 g/dL (11.27-16.99) 01/27/23 06:43 Hct 45.0 % (36-47) 01/27/23 06:43 MCV 89.3 fl (85-98) 01/27/23 06:43 MCH 29.6 pg (27-33) 01/27/23 06:43 MCHC 33.1 g/dL (30-55) 01/27/23 06:43 RDW 12.9 % (12.1-15.1) 01/27/23 06:43 Plt Count 163 10^3/cmm (157-399) 01/27/23 06:43 MPV 10.0 fL (7.4-10.4) 01/27/23 06:43 Neut % (Auto) 60.3 % 01/27/23 06:43 Lymph % (Auto) 28.7 % 01/27/23 06:43 [place] % (Auto) 7.0 % 01/27/23 06:43 Eos % (Auto) 2.9 % 01/27/23 06:43 Baso % (Auto) 0.9 % 01/27/23 06:43 Neut # (Auto) 3.27 10^3/uL (1.8-7.7) 01/27/23 06:43 Lymph # (Auto) 1.6 10^3/uL (0.8-4.8) 01/27/23 06:43 [place] # (Auto) 0.4 10^3/uL (0.2-0.9) 01/27/23 06:43 Eos # (Auto) 0.2 10^3/uL (0.0-0.8) 01/27/23 06:43 Baso # (Auto) 0.1 10^3/uL (0.0-0.1) 01/27/23 06:43 Nucleated RBC % (auto) 0 % 01/27/23 06:43 Nucleated RBCs # 0.0 /100WBC 01/27/23 06:43 Sodium 135 mmol/L (136-145) L 01/27/23 06:43 Potassium 4.0 mmol/L (3.5-5.1) 01/27/23 06:43 Chloride 100 mmol/L (98-107) 01/27/23 06:43 Carbon Dioxide 22 mmol/L (22-29) 01/27/23 06:43 Anion Gap 17.0 (5-19) 01/27/23 06:43 BUN 36 mg/dL (8-23) H 01/27/23 06:43 Creatinine 0.8 mg/dL (0.5-0.9) 01/27/23 06:43 GFR Calculation 72.2 mL/min (90-130) L 01/27/23 06:43 Glucose 300 mg/dL (65-115) H 01/27/23 06:43 Calculated Osmolality 300 mOsm/kg (285-295) H 01/27/23 06:43 Calcium 8.7 mg/dL (8.5-10.5) 01/27/23 06:43 Total Bilirubin 0.2 mg/dL (0.15-1.2) 01/27/23 06:43 AST 33 U/L (0-32) H 01/27/23 06:43 ALT 41 U/L (0-33) H 01/27/23 06:43 Alkaline Phosphatase 141 U/L (35-105) H 01/27/23 06:43 Troponin T Baseline 16 ng/L (0-10) H 01/27/23 06:43 Total Protein 6.6 g/dL (6.6-8.7) 01/27/23 06:43 Albumin 3.5 g/dL (3.5-5.2) 01/27/23 06:43 Globulin 3.1 g/dL (1.3-4.6) 01/27/23 06:43 XR interpretation done by ED provider, pending radiology final review Discharge Plan Discharge Patient Disposition: Placed in Observation Clinical Impression: Atrial fibrillation, new onset, Hypertension, Coronary artery disease Condition: Stable Prescriptions: No Action (DME) blood-glucose meter [ReliOn Micro Glucose Monitor] Misc See Rx Instructions .Route Qty: 1 0RF Rx Instructions: Check BS three times a day. (DME) ReliOn Prime Test Strips Strip See Rx Instructions .Route Qty: 300 3RF Rx Instructions: Check BS 3 times a day. (DME) pen needle, diabetic [1st Tier Unifine Pentips] 31 gauge x 5/16 needle See Rx Instructions .ROUTE .MEDSUPPLY Qty: 270 3RF Rx Instructions: Inject insulin three times a day. albuterol sulfate 90 mcg/actuation aerosol powdr breath activated 2 inh INHALATION Q6H PRN (Reason: Congestion) losartan 50 mg tablet 50 mg PO BID multivitamin Tablet 1 tab PO DAILY furosemide 40 mg tablet 40 mg PO DAILY PRN (Reason: swelling) ([facility] [place]) blood-glucose meter [Precision Xtra Monitor] Misc See Rx Instructions .ROUTE .MEDSUPPLY Qty: 1 0RF Rx Instructions: As directed ([facility] [place]) Precision Xtra Test Strip See Rx Instructions .ROUTE .MEDSUPPLY Qty: 120 3RF Rx Instructions: Check blood sugar four times a day ([facility] [place] [place]) lancets 31 gauge misc See Rx Instructions .ROUTE .MEDSUPPLY Qty: 120 3RF Rx Instructions: Check blood sugar four times a day elderberry fruit and flower 1 ea PO QAM saffron supplement PO ([facility] [place]) Dexcom G6 Decommissioning Well Site Manager Misc See Rx Instructions .Route Qty: 1 3RF Rx Instructions: Change every 10 days ([facility] [place] [place]) Dexcom G6 Sensor Device See Rx Instructions .Route Qty: 3 3RF Rx Instructions: Change every 10 days ([facility] [place]) Dexcom G6 Transmitter Device See Rx Instructions .Route Qty: 1 3RF Rx Instructions: As directed Humulin R U-500 (Conc) Kwikpen 500 unit/mL (3 mL) insulin pen See Rx Instructions .ROUTE .COMPLEX Qty: 54 3RF Dose Instruction: INJECT 100 UNITS SUBCUTANEOUSLY 3 TIMES A DAY WITH MEALS Rx Instructions: INJECT 60 UNITS SUBCUTANEOUSLY 3 TIMES A DAY WITH MEALS carvedilol 12.5 mg tablet 12.5 mg PO BID Qty: 180 3RF Rx Instructions: must administer with a meal/food ([facility] [place]) Dexcom G6 Decommissioning Well Site Manager Misc See Rx Instructions .Route Qty: 1 0RF Rx Instructions: As directed ([facility] [place]) Dexcom G6 Sensor Device See Rx Instructions .Route Qty: 3 3RF Rx Instructions: As directed ([facility] [place] [facility]) Dexcom G6 Transmitter Device See Rx Instructions .Route Qty: 9 3RF Rx Instructions: As directed ivermectin [Soolantra] 1 % cream 1 applic TOPICAL DAILY Qty: 45 0RF potassium chloride 10 mEq tablet extended release See Rx Instructions .ROUTE .COMPLEX Qty: 90 2RF Dose Instruction: TAKE 1 TABLET BY MOUTH EVERY DAY NEEDED WITH FUROSEMIDE Rx Instructions: TAKE 1 TABLET BY MOUTH EVERY DAY NEEDED WITH FUROSEMIDE fluconazole [Diflucan] 100 mg tablet 100 mg PO Q72H Qty: 2 0RF Jardiance 25 mg tablet See Rx Instructions .ROUTE .COMPLEX Qty: 90 1RF Dose Instruction: TAKE 1 TABLET B Y MOUTH ONCE DAILY Rx Instructions: TAKE 1 TABLET B Y MOUTH ONCE DAILY Mounjaro 7.5 mg/0.5 mL pen injector 7.5 mg SUBCUT Q7D 60 Days Qty: 4.5 0RF Repatha SureClick 140 mg/mL pen injector 140 mg SUBCUT Q14D 60 Days Qty: 5 0RF pregabalin 50 mg capsule 50 mg PO BID 30 Days Qty: 60 2RF Mounjaro 10 mg/0.5 mL pen injector See Rx Instructions .ROUTE .COMPLEX Qty: 2 0RF Dose Instruction: 10 MG (0.5 ML) SUBCUTANEOUSLY EVERY 7 DAYS FOR 30 DAYS 10 MG WEEKLY FOR 1 MONTH AFTER 7.5MG Rx Instructions: 10 MG (0.5 ML) SUBCUTANEOUSLY EVERY 7 DAYS FOR 30 DAYS 10 MG WEEKLY FOR 1 MONTH AFTER 7.5MG Mounjaro 12.5 mg/0.5 mL pen injector 12.5 mg SUBCUT Q7D Qty: 2 1RF Rx Instructions: 12.5 mg weekly for 1 month and continue Aspir-Low 81 mg Tablet,Delayed Release (Dr/Ec) 81 mg PO QAM Referrals: Del Wallace NP [Primary Care Provider] - Coding Level of Care Code ED Layout Operator for Natalee Doyle
[2023-01-27 06:50] VITALS: BP 139/83; PULSE 83; RESP 16; O2SAT 95
--- NOTE | 2023-01-27 06:50 | ECG_ITS ---
[facility] Test Date: 2023-01-27 Pat Name: Romi Salmeron Department: Room: Gender: Female Quality Control Analyst: : 1960 Requested By: Flaco Silverman Order Number: [id number] Dayne MD: Gracie West M.D. Measurements Intervals [place] Rate: 87 P: 0 SC: 0 QRS: 59 QRSD: 106 T: 15 QT: 390 QTc: 471 Interpretive Statements ATRIAL FIBRILLATION POSSIBLE ANTERIOR MYOCARDIAL INFARCTION , PROBABLY OLD [30 ms Q WAVE IN V3/V4, OR R < 0.2 mV IN V4] ABNORMAL RHYTHM ECG No previous ECG available for comparison Electronically Signed On 01-27-2023 21:31:32 CDT by Gracie West M.D. [id number]
[2023-01-27 06:56] LABS: Basophils # 0.1 10^3/uL (0.0-0.1); Basophils % 0.9 %; Eosinophils # 0.2 10^3/uL (0.0-0.8); Eosinophils % 2.9 %; Lymphocytes # 1.6 10^3/uL (0.8-4.8); Lymphocytes % 28.7 %; Mean Corpuscular HGB Conc 33.1 g/dL (30-55); Mean Corpuscular Hemoglobin 29.6 pg (27-33); Mean Corpuscular Volume 89.3 fl (85-98); Monocytes # 0.4 10^3/uL (0.2-0.9); Neutrophils # 3.27 10^3/uL (1.8-7.7); Neutrophils % 60.3 %; Nucleated Red Blood Cells % 0 %; Platelet Count 163 10^3/cmm (157-399); Red Blood Count 5.04 10^6/uL (3.85-5.65); Red Cell Distribution Width 12.9 % (12.1-15.1); White Blood Count 5.43 10^3/uL (3.29-11.43)
[2023-01-27] MEDS: carvedilol 12.5 mg Tablet PO ×2 (07:10→17:22)
[2023-01-27] MEDS: aspirin 81 mg Chew Tablet PO (07:10)
[2023-01-27 07:12] LABS: Alanine Aminotransferase 41 U/L (0-33); Albumin Level 3.5 g/dL (3.5-5.2); Alkaline Phosphatase 141 U/L (35-105); Aspartate Amino Transferase 33 U/L (0-32); Blood Urea Nitrogen 36 mg/dL (8-23); Calcium 8.7 mg/dL (8.5-10.5); Carbon Dioxide 22 mmol/L (22-29); Chloride 100 mmol/L (98-107); Globulin 3.1 g/dL (1.3-4.6); Glomerular Filtration Rate 72.2 mL/min (90-130); Glucose 300 mg/dL (65-115); Osmolality Calculated 300 mOsm/kg (285-295); Sodium 135 mmol/L (136-145); Total Bilirubin 0.2 mg/dL (0.15-1.2); Total Protein 6.6 g/dL (6.6-8.7)
[2023-01-27 07:15] LABS: Troponin(5th) Baseline 16 ng/L (0-10)
[2023-01-27 07:34] VITALS: BP 119/69; PULSE 85; RESP 24; O2SAT 92
[2023-01-27 09:01] LABS: Troponin 5 2HR 23.92 ng/L (0-10)
[2023-01-27 09:02] LABS: Troponin 5 2HR Delta 7.92 ABS# (0-10)
--- NOTE | 2023-01-27 09:13 | PM.HP ---
Documented by User: Kaylen Madrid 01/27/23 10:11 Providers/Chief Complaint Admitting Physician: Maximo Collazo MD Primary Care Provider: Del Wallace Chief Complaint: A-fib History of Present Illness Romi Salmeron is a 63 year old female who presents with one day history of heart palpitations, shortness of breath and chest pain. Mrs. Salmeron states she was awoken this morning at around 4am with a racing heart she describes as jittery , a sensation that she couldn't breath, dizziness, and chest pain. She also vomited once during the episode. Her history is significant for previous [place]V with stent placement of LAD in 2017 and was instructed at that time to take an aspirin if she started having chest pain. Because of this, the patient decided to take three 81 mg aspirin this morning to alleviate her symptoms, although she admitted the chest pain she experienced this morning was different from her previous WV. She also tried to rest, but got no relief, so EMS was called and transported her to the emergency department. EMS found her to have atrial fibrillation with RVR, which was treated with 20 IV Cardizem in the field. By the time she arrived to the ED, she was still in atrial fibrillation, but her rate was controlled. She was not given any additional Cardizem but was given her morning carvedilol. Recently, the patient saw cardiology, who switched her metoprolol to carvedilol. Ms. Salmeron says that she had not started her carvedilol at home yet because she wanted to finish her metoprolol to avoid confusion when taking her medications. She denies any recent illness, fevers, or any current chest pain or shortness of breath. Her only symptoms at when interviewing her in the ED was chest palpitations. All other review of systems are negative. Medications/Allergies Home Medications Medication Instructions Recorded Confirmed Last Taken Type albuterol sulfate 90 mcg/actuation 2 inh inhalation Q6H PRN Congestion 11/02/19 01/27/23 09/30/20 History breath activated powder inhaler furosemide 40 mg tablet 40 mg PO DAILY PRN swelling 11/02/19 01/27/23 09/30/20 History losartan 50 mg tablet 50 mg PO BID 11/02/19 01/27/23 01/26/23 History multivitamin 1 tab PO QPM 07/01/27/23 01/26/23 History blood sugar diagnostic (Precision #120 ea 12/04/19 01/27/23 09/30/20 Rx Xtra Test strips) blood-glucose meter (Precision #1 ea 12/04/19 01/27/23 09/30/20 Rx Xtra Monitor) lancets 31 gauge #120 ea 12/04/19 01/27/23 09/30/20 Rx elderberry fruit and flower 1 ea PO QAM 09/23/20 01/27/23 01/26/23 History blood sugar diagnostic (ReliOn #300 ea 08/10/21 01/27/23 Unknown Rx Prime Test Strips) blood-glucose meter (ReliOn Micro #1 ea 08/10/21 01/27/23 Unknown Rx Glucose Monitor) pen needle, diabetic 31 gauge x #270 ea 08/10/21 01/27/23 Unknown Rx 5/16 (1st Tier Unifine Pentips) blood-glucose meter,continuous #1 ea 01/21/22 01/27/23 Unknown Rx (Dexcom G6 Hat Block Maker) blood-glucose sensor (Dexcom G6 #3 ea 01/21/22 01/27/23 Unknown Rx Sensor device) blood-glucose transmitter (Dexcom #9 ea 01/21/22 01/27/23 Unknown Rx G6 Transmitter device) blood-glucose meter,continuous #1 ea 01/22/22 01/27/23 Unknown Rx (Dexcom G6 Hat Block Maker) blood-glucose sensor (Dexcom G6 #3 ea 01/22/22 01/27/23 Unknown Rx Sensor device) blood-glucose transmitter (Dexcom #1 ea 01/22/22 01/27/23 Unknown Rx G6 Transmitter device) potassium chloride 10 mEq See Rx Instructions .Route 03/31/22 01/27/23 Unknown Rx tablet,extended release .COMPLEX #90 tabs saffron supplement 88.5 mg PO QAM 07/07/22 01/27/23 01/26/23 History insulin regular hum U-500 conc 500 See Rx Instructions .Route 10/06/22 01/27/23 01/26/23 Rx unit/mL(3 mL) subcut pen (Humulin .COMPLEX #54 mL R U-500 (Conc) Insulin Kwikpen) evolocumab 140 mg/mL subcutaneous 140 mg SUBCUT Q14D 60 days #5 mL 11/10/22 01/27/23 Unknown Rx pen injector (Reprachele SureFrankick) pregabalin 50 mg capsule 50 mg PO BID 30 days #60 caps 12/15/22 01/27/23 01/26/23 Rx tirzepatide 10 mg/0.5 mL See Rx Instructions .Route 01/17/23 01/27/23 Unknown Rx subcutaneous pen injector .COMPLEX #2 mL (Mounjaro) carvedilol 12.5 mg tablet 12.5 mg PO BID #180 tabs 01/20/23 01/27/23 01/26/23 Rx L.acidoph, paracasei,B. lactis 10 20 cell PO QAM 01/27/23 01/27/23 01/26/23 History billion cell capsule (Digestive Advantage Advanced Probiotic) Red Reish Mushroom 2,500 mg PO QAM 01/27/23 01/27/23 01/26/23 History apple cider vinegar 600 mg capsule 2,400 mg PO QPM 01/27/23 01/27/23 01/26/23 History ascorbic acid (vitamin C) 1,000 mg 2,000 mg PO QAM 01/27/23 01/27/23 01/26/23 History tablet (Vitamin C) aspirin 81 mg tablet,delayed 81 mg PO QAM 01/27/23 01/27/23 01/26/23 History release cholecalciferol (vitamin D3) 125 125 mcg PO QAM 01/27/23 01/27/23 01/26/23 History mcg (5,000 unit) tablet (Vitamin D3) empagliflozin 25 mg tablet 25 mg PO QAM 01/27/23 01/27/23 01/26/23 History (Jardiance) garlic 1,000 mg capsule 1,000 mg PO QPM 01/27/23 01/27/23 01/26/23 History lysine 500 mg tablet (L-Lysine) 500 mg PO QPM 01/27/23 01/27/23 01/26/23 History magnesium 200 mg tablet 400 mg PO QPM 01/27/23 01/27/23 01/26/23 History metoprolol tartrate 25 mg tablet 25 mg PO BID 01/27/23 01/27/23 01/26/23 History Allergies Allergy/AdvReac Type Severity Reaction Status Date / Time latex Allergy ALGY-Rash Verified 01/20/23 09:43 Uqqydhd-AEC-TxU Reductase AdvReac Unknown Verified 01/20/23 09:43 Inhibitor [Tuqzhze-Ueg-Kke Reductase Inhibitor] PFSH Acute PFSH: Medical History (Updated 01/27/23 @ 09:49 by Maximo Collazo MD) Coronary artery disease Diabetic neuropathy Encounter for screening colonoscopy Repeat screening colonoscopy in 10 years Fatty liver Hyperlipidemia Hypertension Myocardial infarction Rosacea Uncontrolled diabetes mellitus with microalbuminuria Surgical History H/O section History of carpal tunnel release 2020 History of coronary artery stent placement History of hysterectomy Family History Father Myocardial infarction Other CAD (coronary artery disease) Social History Smoking and tobacco/nicotine status: never used tobacco/nicotine Alcohol intake: never Substance/Drug Use: never Vitals/I&O/Wt Last Vital Signs Pulse 85 01/27/23 07:34 Resp 24 H 01/27/23 07:34 BP 119/69 01/27/23 07:34 Pulse Ox 92 01/27/23 07:34 O2 Del Method Room Air 01/27/23 07:34 Weight last 48 hrs Weight 99.79 kg Physical Exam Narrative: General: pt is an alert, cooperative, conversant white woman. She became tearful at times due to wanting to spend time with her daughter who is visiting. Neck: supple, no lymphadenopathy, no thyromegaly. Cardiac: normal rate, irregular rhythm. Unable to appreciate murmur. Respiratory: lungs clear to auscultation bilaterally. Abdomen: normoactive bowel sounds in all 4 quadrants. No abdominal tenderness, guarding. No obvious organomegaly. : deferred Skin: no lesions, bruising, well-perfused. Extremities: no edema, brisk capillary refill, 2+ pulses in upper and lower extremities. Neuro: no focal deficits. Data 01/27/23 06:43 01/27/23 06:43 Other Labs: Mild elevation in liver enzymes. Troponin at baselike 16. At 120 minute 23.92. Normal delta. CXR shows no acute findings by my read EKG by my read in ED shows atrial fibrillation with normal rate. ECHO done 08/04/22 showed EF of 64% and grade I/IV dysfunction. A&P Assessment and plan (1) Atrial fibrillation, new onset: Start cardizem drip for new onset afib and transition to PO carvedilol as tolerate Start Lovenox. Check TSH and magnesium for potential precipitants for afib onset. CBC, BMP daily Order limited ECHO to evaluate for changes to ejection fraction (2) Chest pain: Repeat troponin levels to ensure no new heart strain (3) Coronary artery disease: Give aspirin, lovenox, losartan, carvedilol. Pt has history of intolerance to statins and uses evolocumab for hyperlipidemia. (4) Uncontrolled diabetes mellitus with microalbuminuria: Start sliding scale insulin. Coding Level of Care Code 66091 Diagnoses Atrial fibrillation, new onset I48.91 Chest pain R07.9 Coronary artery disease I25.10 Uncontrolled diabetes mellitus with microalbuminuria E11.29; E11.65; R80.9 Time Spent (min) 48 Documented by User: Maximo Collazo MD 01/27/23 10:28 Providers/Chief Complaint Chief Complaint: A-fib History of Present Illness Romi Salmeron is a 63 year old female who presents with one day history of heart palpitations, shortness of breath and chest pain. Mrs. Salmeron states she was awoken this morning at around 4am with a racing heart she describes as jittery , a sensation that she couldn't breath, dizziness, and chest pain. She also vomited once during the episode. Her history is significant for previous [place] with stent placement of LAD in 2017 and was instructed at that time to take an aspirin if she started having chest pain. Because of this, the patient decided to take three 81 mg aspirin this morning to alleviate her symptoms, although she admitted the chest pain she experienced this morning was different from her previous WV. She also tried to rest, but got no relief, so EMS was called and transported her to the emergency department. EMS found her to have atrial fibrillation with RVR, which was treated with 20 IV Cardizem in the field. By the time she arrived to the ED, she was still in atrial fibrillation, but her rate was controlled. She was not given any additional Cardizem but was given her morning carvedilol. Recently, the patient saw cardiology, who switched her metoprolol to carvedilol. Ms. Salmeron says that she had not started her carvedilol at home yet because she wanted to finish her metoprolol to avoid confusion when taking her medications. She denies any recent illness, fevers, or any current chest pain or shortness of breath. Her only symptoms at when interviewing her in the ED was chest palpitations. All other review of systems are negative. Above reviewed. Patient has no chest pain currently. I saw the patient in tandem with the medical student. Review of Systems General: Reports: 10 or more systems reviewed and unremarkable except in HPI and below Card: Reports: chest pain and palpitations GI: Reports: nausea and vomiting; Denies: abdominal pain, hematemesis, hematochezia or melena Medications/Allergies Home Medications Medication Instructions Recorded Confirmed Last Taken Type albuterol sulfate 90 mcg/actuation 2 inh inhalation Q6H PRN Congestion 11/02/19 01/27/23 09/30/20 History breath activated powder inhaler furosemide 40 mg tablet 40 mg PO DAILY PRN swelling 11/02/19 01/27/23 09/30/20 History losartan 50 mg tablet 50 mg PO BID 11/02/19 01/27/23 01/26/23 History multivitamin 1 tab PO QPM 11/02/19 01/27/23 01/26/23 History blood sugar diagnostic (Precision #120 ea 12/04/19 01/27/23 09/30/20 Rx Xtra Test strips) blood-glucose meter (Precision #1 ea 12/04/19 01/27/23 09/30/20 Rx Xtra Monitor) lancets 31 gauge #120 ea 12/04/19 01/27/23 09/30/20 Rx elderberry fruit and flower 1 ea PO QAM 09/23/20 01/27/23 01/26/23 History blood sugar diagnostic (ReliOn #300 ea 08/10/21 01/27/23 Unknown Rx Prime Test Strips) blood-glucose meter (ReliOn Micro #1 ea 08/10/21 01/27/23 Unknown Rx Glucose Monitor) pen needle, diabetic 31 gauge x #270 ea 08/10/21 01/27/23 Unknown Rx 5/16 (1st Tier Unifine Pentips) blood-glucose meter,continuous #1 ea 01/21/22 01/27/23 Unknown Rx (Dexcom G6 Hat Block Maker) blood-glucose sensor (Dexcom G6 #3 ea 01/21/22 01/27/23 Unknown Rx Sensor device) blood-glucose transmitter (Dexcom #9 ea 01/21/22 01/27/23 Unknown Rx G6 Transmitter device) blood-glucose meter,continuous #1 ea 01/22/22 01/27/23 Unknown Rx (Dexcom G6 Hat Block Maker) blood-glucose sensor (Dexcom G6 #3 ea 01/22/22 01/27/23 Unknown Rx Sensor device) blood-glucose transmitter (Dexcom #1 ea 01/22/22 01/27/23 Unknown Rx G6 Transmitter device) potassium chloride 10 mEq See Rx Instructions .Route 03/31/22 01/27/23 Unknown Rx tablet,extended release .COMPLEX #90 tabs saffron supplement 88.5 mg PO QAM 07/07/22 01/27/23 01/26/23 History insulin regular hum U-500 conc 500 See Rx Instructions .Route 10/06/22 01/27/23 01/26/23 Rx unit/mL(3 mL) subcut pen (Humulin .COMPLEX #54 mL R U-500 (Conc) Insulin Kwikpen) evolocumab 140 mg/mL subcutaneous 140 mg SUBCUT Q14D 60 days #5 mL 11/10/22 01/27/23 Unknown Rx pen injector (Danna Jonas) pregabalin 50 mg capsule 50 mg PO BID 30 days #60 caps 12/15/22 01/27/23 01/26/23 Rx tirzepatide 10 mg/0.5 mL See Rx Instructions .Route 01/17/23 01/27/23 Unknown Rx subcutaneous pen injector .COMPLEX #2 mL (Mounstoneyro) carvedilol 12.5 mg tablet 12.5 mg PO BID #180 tabs 01/20/23 01/27/23 01/26/23 Rx L.acidoph, paracasei,B. lactis 10 20 cell PO QAM 01/27/23 01/27/23 01/26/23 History billion cell capsule (Digestive Advantage Advanced Probiotic) Red Reish Mushroom 2,500 mg PO QAM 01/27/23 01/27/23 01/26/23 History apple cider vinegar 600 mg capsule 2,400 mg PO QPM 01/27/23 01/27/23 01/26/23 History ascorbic acid (vitamin C) 1,000 mg 2,000 mg PO QAM 01/27/23 01/27/23 01/26/23 History tablet (Vitamin C) aspirin 81 mg tablet,delayed 81 mg PO QAM 01/27/23 01/27/23 01/26/23 History release cholecalciferol (vitamin D3) 125 125 mcg PO QAM 01/27/23 01/27/23 01/26/23 History mcg (5,000 unit) tablet (Vitamin D3) empagliflozin 25 mg tablet 25 mg PO QAM 01/27/23 01/27/23 01/26/23 History (Jardiance) garlic 1,000 mg capsule 1,000 mg PO QPM 01/27/23 01/27/23 01/26/23 History lysine 500 mg tablet (L-Lysine) 500 mg PO QPM 01/27/23 01/27/23 01/26/23 History magnesium 200 mg tablet 400 mg PO QPM 01/27/23 01/27/23 01/26/23 History metoprolol tartrate 25 mg tablet 25 mg PO BID 01/27/23 01/27/23 01/26/23 History Allergies Allergy/AdvReac Type Severity Reaction Status Date / Time latex Allergy ALGY-Rash Verified 01/20/23 09:43 Uuyhrvi-MAS-WaT Reductase AdvReac Unknown Verified 01/20/23 09:43 Inhibitor [Bbsyzpa-Hgw-Mdq Reductase Inhibitor] PFSH Acute PFSH: Medical History (Updated 01/27/23 @ 09:49 by Maximo Collazo MD) Coronary artery disease Diabetic neuropathy Encounter for screening colonoscopy Repeat screening colonoscopy in 10 years Fatty liver Hyperlipidemia Hypertension Myocardial infarction Rosacea Uncontrolled diabetes mellitus with microalbuminuria Surgical History H/O section History of carpal tunnel release 2019 History of coronary artery stent placement History of hysterectomy Family History Father Myocardial infarction Other CAD (coronary artery disease) Social History Smoking and tobacco/nicotine status: never used tobacco/nicotine Alcohol intake: never Substance/Drug Use: never Other [facility] information: Supplemental [facility] Information: Father at 42 years of age secondary to myocardial infarction Data 01/27/23 06:43 01/27/23 06:43 Other Labs: Mild elevation in liver enzymes. Troponin at baselike 16. At 120 minute 23.92. Normal delta. CXR shows no acute findings by my read EKG by my read in ED shows atrial fibrillation with normal rate. A&P Assessment and plan (1) Atrial fibrillation, new onset: After Cardizem IV given by EMS, and a carvedilol dose given by the emergency department physician, patient has spontaneously converted to normal sinus rhythm with a rate of 65. Initiate anticoagulation with Eliquis Check TSH and magnesium for potential precipitants for afib onset. CBC, BMP daily Order limited ECHO to evaluate for changes to ejection fraction Continue carvedilol 12.5 mg twice daily. Will visit with her primary vice president marketing & development whether he would like this dose adjusted, but we may be limited on significant increases secondary to heart rate. (2) Chest pain: Troponin series has been initiated. The first troponin was 16 with repeat of 24. Will await 6-hour. She denies any chest discomfort. Could consider outpatient evaluation of elevates further (3) Coronary artery disease: (4) Uncontrolled diabetes mellitus with microalbuminuria: Plan Obstructive sleep apnea. Allow her to use her home CPAP. Other medical problems as listed in her past medical history. SCDs for DVT prophylaxis Eliquis will suffice for DVT prophylaxis from a pharmacological standpoint. Attestations Medical Necessity Statement*: Will need less than 2 midnight stay for evaluation and treatment of atrial fibrillation with rapid ventricular rate Diagnoses Atrial fibrillation, new onset I48.91 Chest pain R07.9 Coronary artery disease I25.10 Uncontrolled diabetes mellitus with microalbuminuria E11.29; E11.65; R80.9 Time Spent (min) 48
--- NOTE | 2023-01-27 09:46 | USCV_ITS ---
Romi Salmeron Age: 63 Gender: F : 1960 Exam Date: 01/27/2023 10:24 Ordering Phys: Maximo Collazo MD Technologist: Matthias Bernstein Exam Location: [facility] [place] Indication: TACH EPISODES BP: 118 / 67 HR: 62 Rhythm: Sinus Technical Quality: Adequate MEASUREMENTS (Male / Female) Normal Values 2D ECHO LV Diastolic Diameter PLAX 3.1 cm 4.2 - 5.9 / 3.9 - 5.3 cm LV Systolic Diameter PLAX 2.3 cm IVS Diastolic Thickness 0.9 cm 0.6 - 1.0 / 0.6 - 0.9 cm IVS Systolic Thickness 1.4 cm LVPW Diastolic Thickness 0.9 cm 0.6 - 1.0 / 0.6 - 0.9 cm LVPW Systolic Thickness 1.2 cm LVOT Diameter 2.1 cm LV Ejection Fraction 2D Teich 44.8 % LV Ejection Fraction MOD 2C 63.4 % LV Ejection Fraction 2C AL 64.5 % LA Diameter 3.6 cm M-MODE Aortic Annulus Diameter 3.1 cm LA Ao Ratio MM 1.2 FINDINGS Left Ventricle Normal left ventricular size, systolic function with no regional wall motion abnormalities. Left ventricular ejection fraction is estimated at 60 %. Right Ventricle Normal right ventricular size and systolic function. Right Atrium Normal right atrial size. Left Atrium Mildly increased left atrial size. Mitral Valve Thickened mitral valve. Moderate mitral annular calcification. Aortic Valve Probably trileaflet aortic valve. Tricuspid Valve Structurally normal tricuspid valve. Pulmonic Valve Pulmonic valve not well visualized. Pericardium No pericardial effusion. Aorta Normal size aortic root. IVC Inferior vena cava not visualized. CONCLUSIONS 1. Normal left ventricular size, systolic function with no regional wall motion abnormalities. Left ventricular ejection fraction is estimated at 60 %. 2. No change when compared to study dated 08/07/22. Cherri Smith MD (Electronically Signed) Final Date: 27 January 2023 23:07 S
--- NOTE | 2023-01-27 10:10 | PC.NURSE ---
To unit Pt brought to unit by ER staff via wheelchair. Pt placed on ICU bedside monitor on room air, BP 129/88, HR 71 in NSR. Pt is alert and oriented. IV to right AC. Pt oriented to room and visitor policy.
--- NOTE | 2023-01-27 10:14 | ECG_ITS ---
[facility] Test Date: 2023-01-27 Pat Name: Romi Salmeron Department: Room: [facility] Gender: Female Practice Coordinator: : 1960 Requested By: Flaco Silverman Order Number: [id number] Dayne MD: Gracie West M.D. Measurements Intervals [place] Rate: 62 P: 0 MI: 214 QRS: 61 QRSD: 87 T: 29 QT: 440 QTc: 448 Interpretive Statements SINUS RHYTHM WITH FIRST DEGREE AV BLOCK LOW QRS VOLTAGE IN PRECORDIAL LEADS [QRS DEFLECTION < 1.0 mV IN CHEST LEADS] ANTEROSEPTAL MYOCARDIAL INFARCTION , OF INDETERMINATE AGE [40+ ms Q WAVE IN V1-V4] Compared to ECG 01/27/2023 06:36:39 First degree AV block now present Low QRS voltage now present Atrial fibrillation no longer present Myocardial infarct finding still present Electronically Signed On 01-27-2023 21:38:30 CDT by Gracie West M.D. [id number]
[2023-01-27 10:19] LABS: Thyroid Stimulating Hormone 1.21 uIU/mL (0.27-4.20)
[2023-01-27] MEDS: apixaban 5 mg Tablet PO ×2 (10:54→19:35)
[2023-01-27] MEDS: docusate sodium 100 mg Capsule PO (10:54)
--- NOTE | 2023-01-27 12:50 | ECG_ITS ---
[facility] Test Date: 2023-01-27 Pat Name: Romi Salmeron Department: Room: [facility] Gender: Female Medicine Tech: : 1960 Requested By: Flaco Silverman Order Number: [id number] Dayne MD: Gracie West M.D. Measurements Intervals [place] Rate: 61 P: -1 SC: 209 QRS: 41 QRSD: 85 T: 21 QT: 447 QTc: 452 Interpretive Statements SINUS RHYTHM LOW QRS VOLTAGE IN PRECORDIAL LEADS [QRS DEFLECTION < 1.0 mV IN CHEST LEADS] SEPTAL MYOCARDIAL INFARCTION , OF INDETERMINATE AGE [40+ ms Q WAVE IN V1/V2] Compared to ECG 01/27/2023 10:14:23 First degree AV block no longer present Myocardial infarct finding still present Electronically Signed On 01-27-2023 21:39:21 CDT by Gracie West M.D. [id number]
[2023-01-27 14:02] LABS: Troponin 5 6HR 26.78 ng/L (0-10)
[2023-01-27 14:05] LABS: Troponin 5 6HR Delta 10.78 ng/L (0-12)
[2023-01-27] MEDS: dilTIAZem 30 mg Tablet PO ×2 (14:19→19:36)
[2023-01-27] MEDS: losartan 50 mg Tablet PO (17:22)
[2023-01-27] MEDS: pregabalin 50 mg Capsule PO (17:22)
[2023-01-27] MEDS: acetaminophen 325 mg Tablet 650 MG PO (17:26)
--- NOTE | 2023-01-27 19:38 | PC.NURSE ---
Up sitting on side of bed, v/s stable, no reports of pain or discomfort. Patient refusing to let me check her blood glucose. States I have a dexcom . Blood glucose 250 on patients dexcom. Patient has blood pressure cuff on lower part of arm and it is very loose, will not allow to place iti properly on arm to obtain accurate blood pressure. Patient becomes tearful and states I am just sad because my daughter drove in from [place] to visit and I am stuck here . Talked with patient at bedside until she was feeling better. No acute distress noted.
[2023-01-27 20:00] VITALS: BP 145/70; PULSE 59; RESP 25; TEMP 36.8; O2SAT 94
[2023-01-27 22:05] VITALS: PULSE 61
[2023-01-28] VITALS (7 sets, daily range): BP systolic 109–152; BP diastolic 61–76; PULSE 55–73; RESP 21–27; TEMP 36.6–36.7; O2SAT 90–94
[2023-01-28] MEDS: aspirin 81 mg EC Tablet PO (06:11)
[2023-01-28 07:40] LABS: Glucose Point of Care 181 mg/dL (70-110)
--- NOTE | 2023-01-28 08:34 | PM.DCS ---
Discharge Providers Date of Admission: 01/27/23 08:01 Date of Discharge: January 28, 2023 Attending Provider at Admission: Maximo Collazo MD Attending Provider at Discharge: Maximo Collazo MD Primary Care Provider: Del Wallace Diagnoses at Discharge Discharge Diagnosis (1) Atrial fibrillation, new onset: Status: Acute (2) Chest pain: Status: Acute (3) Coronary artery disease: Status: Acute (4) Uncontrolled diabetes mellitus with microalbuminuria: Status: Acute Reason for Visit Reason for Visit: A-fib Hospital Course Hospital Course Romi is a 63-year-old white female who presented to the hospital with complaints of palpitations and chest discomfort. She was found to be in atrial fibrillation with rapid ventricular rate. She was given a Cardizem IV bolus in the emergency department, and her home carvedilol. Shortly after and transition to the stepdown unit she converted to sinus rhythm. During her hospital course apixaban was added to her regimen for stroke prevention. I discussed the risks and benefits of this medicine with the patient. Diltiazem 30 mg 3 times daily was also added after I had a brief conversation with her primary controller coal or [employer]. A limited echo was performed which demonstrated preserved EF and no changes from previous echo. The following day she was doing well with no recurrence of atrial fibrillation. It was thought she could discharge home, with close follow-up with her primary care provider and cardiology. She was given an opportunity ask questions and agreed with the plan. TSH and electrolytes were checked on admission and were normal. Troponin elevation did occur with her atrial fibrillation with rapid ventricular rate, and is thought to be secondary to the arrhythmia. This can be further addressed on follow-up with cardiology. Physical Exam Narrative: General exam no distress Neck is supple Cardiovascular regular rate and rhythm without murmur Lungs clear Abdomen is soft obese Extremities no cyanosis clubbing edema Discharge Data Studies Completed and Pending Completed Studies During Hospitalization Category Date Time Status XR chest 1V portable [id number] Stat Exams 01/27/23 06:40 Completed CV. echo limited [id number] Routine Ultrasound 01/27/23 09:46 Completed Radiology Impressions Chest X-Ray 01/27/23 06:40 IMPRESSION: No acute findings. Laboratory Results WBC 5.43 10^3/uL (3.29-11.43) 01/27/23 06:43 RBC 5.04 10^6/uL (3.85-5.65) 10/12/23 06:43 Hgb 14.90 g/dL (11.27-16.99) 01/27/23 06:43 Hct 45.0 % (36-47) 01/27/23 06:43 MCV 89.3 fl (85-98) 01/27/23 06:43 MCH 29.6 pg (27-33) 01/27/23 06:43 MCHC 33.1 g/dL (30-55) 01/27/23 06:43 RDW 12.9 % (12.1-15.1) 01/27/23 06:43 Plt Count 163 10^3/cmm (157-399) 01/27/23 06:43 MPV 10.0 fL (7.4-10.4) 01/27/23 06:43 Neut % (Auto) 60.3 % 01/27/23 06:43 Lymph % (Auto) 28.7 % 01/27/23 06:43 Thurston % (Auto) 7.0 % 01/27/23 06:43 Eos % (Auto) 2.9 % 01/27/23 06:43 Baso % (Auto) 0.9 % 01/27/23 06:43 Neut # (Auto) 3.27 10^3/uL (1.8-7.7) 01/27/23 06:43 Lymph # (Auto) 1.6 10^3/uL (0.8-4.8) 01/27/23 06:43 Thurston # (Auto) 0.4 10^3/uL (0.2-0.9) 01/27/23 06:43 Eos # (Auto) 0.2 10^3/uL (0.0-0.8) 01/27/23 06:43 Baso # (Auto) 0.1 10^3/uL (0.0-0.1) 01/27/23 06:43 Nucleated RBC % (auto) 0 % 01/27/23 06:43 Nucleated RBCs # 0.0 /100WBC 01/27/23 06:43 Sodium 135 mmol/L (136-145) L 01/27/23 06:43 Potassium 4.0 mmol/L (3.5-5.1) 01/27/23 06:43 Chloride 100 mmol/L (98-107) 01/27/23 06:43 Carbon Dioxide 22 mmol/L (22-29) 01/27/23 06:43 Anion Gap 17.0 (5-19) 01/27/23 06:43 BUN 36 mg/dL (8-23) H 01/27/23 06:43 Creatinine 0.8 mg/dL (0.5-0.9) 01/27/23 06:43 GFR Calculation 72.2 mL/min (90-130) L 01/27/23 06:43 Glucose 300 mg/dL (65-115) H 01/27/23 06:43 POC Glucose 181 mg/dL (70-110) H 01/28/23 07:36 Calculated Osmolality 300 mOsm/kg (285-295) H 01/27/23 06:43 Calcium 8.7 mg/dL (8.5-10.5) 01/27/23 06:43 Magnesium 2.0 mg/dL (1.7-2.3) 01/27/23 06:43 Total Bilirubin 0.2 mg/dL (0.15-1.2) 01/27/23 06:43 AST 33 U/L (0-32) H 01/27/23 06:43 ALT 41 U/L (0-33) H 01/27/23 06:43 Alkaline Phosphatase 141 U/L (35-105) H 01/27/23 06:43 Troponin T Baseline 16 ng/L (0-10) H 01/27/23 06:43 Troponin T 120 Minute 23.92 ng/L (0-10) H 01/27/23 08:32 Delta Troponin T 7.92 ABS# (0-10) 01/27/23 08:32 Troponin T Hi Sens 6Hr 26.78 ng/L (0-10) H 01/27/23 13:30 Troponin T Hi Sens 6Hr Delta 10.78 ng/L (0-12) 01/27/23 13:30 Total Protein 6.6 g/dL (6.6-8.7) 01/27/23 06:43 Albumin 3.5 g/dL (3.5-5.2) 01/27/23 06:43 Globulin 3.1 g/dL (1.3-4.6) 01/27/23 06:43 TSH 1.21 uIU/mL (0.27-4.20) 01/27/23 06:43 Vitals Last Vital Signs Temp 97.8 F 01/28/23 04:00 Pulse 73 01/28/23 08:00 Resp 27 H 01/28/23 08:00 BP 109/61 01/28/23 08:00 Pulse Ox 92 01/28/23 06:00 O2 Del Method Room Air 01/28/23 04:00 Discharge Plan Discharge Patient Disposition: Home Condition: Stable Prescriptions: New diltiazem HCl 30 mg Tablet 30 mg PO Q8H Qty: 90 0RF Eliquis 5 mg Tablet 5 mg PO BID@0900,2100 Qty: 60 0RF Continued (DME) blood-glucose meter [ReliOn Micro Glucose Monitor] Misc See Rx Instructions .Route Qty: 1 0RF Rx Instructions: Check BS three times a day. (DME) ReliOn Prime Test Strips Strip See Rx Instructions .Route Qty: 300 3RF Rx Instructions: Check BS 3 times a day. (DME) pen needle, diabetic [1st Tier Unifine Pentips] 31 gauge x 5/16 needle See Rx Instructions .ROUTE .MEDSUPPLY Qty: 270 3RF Rx Instructions: Inject insulin three times a day. albuterol sulfate 90 mcg/actuation aerosol powdr breath activated 2 inh INHALATION Q6H PRN (Reason: Congestion) losartan 50 mg tablet 50 mg PO BID multivitamin Tablet 1 tab PO QPM furosemide 40 mg tablet 40 mg PO DAILY PRN (Reason: swelling) (DME) blood-glucose meter [Precision Xtra Monitor] Misc See Rx Instructions .ROUTE .MEDSUPPLY Qty: 1 0RF Rx Instructions: As directed (DME) Precision Xtra Test Strip See Rx Instructions .ROUTE .MEDSUPPLY Qty: 120 3RF Rx Instructions: Check blood sugar four times a day (DME) lancets 31 gauge misc See Rx Instructions .ROUTE .MEDSUPPLY Qty: 120 3RF Rx Instructions: Check blood sugar four times a day elderberry fruit and flower 1 ea PO QAM saffron supplement 88.5 mg PO QAM (DME) Dexcom G6 Medical Videographer Misc See Rx Instructions .Route Qty: 1 3RF Rx Instructions: Change every 10 days (DME) Dexcom G6 Sensor Device See Rx Instructions .Route Qty: 3 3RF Rx Instructions: Change every 10 days (DME) Dexcom G6 Transmitter Device See Rx Instructions .Route Qty: 1 3RF Rx Instructions: As directed Humulin R U-500 (Conc) Kwikpen 500 unit/mL (3 mL) insulin pen See Rx Instructions .ROUTE .COMPLEX Qty: 54 3RF Dose Instruction: INJECT 100 UNITS SUBCUTANEOUSLY 3 TIMES A DAY WITH MEALS Rx Instructions: INJECT 60 UNITS SUBCUTANEOUSLY 3 TIMES A DAY WITH MEALS carvedilol 12.5 mg tablet 12.5 mg PO BID Qty: 180 3RF Rx Instructions: must administer with a meal/food (DME) Dexcom G6 Medical Videographer Misc See Rx Instructions .Route Qty: 1 0RF Rx Instructions: As directed (DME) Dexcom G6 Sensor Device See Rx Instructions .Route Qty: 3 3RF Rx Instructions: As directed (DME) Dexcom G6 Transmitter Device See Rx Instructions .Route Qty: 9 3RF Rx Instructions: As directed potassium chloride 10 mEq tablet extended release See Rx Instructions .ROUTE .COMPLEX Qty: 90 2RF Dose Instruction: TAKE 1 TABLET BY MOUTH EVERY DAY NEEDED WITH FUROSEMIDE Rx Instructions: TAKE 1 TABLET BY MOUTH EVERY DAY NEEDED WITH FUROSEMIDE Repatha SureClick 140 mg/mL pen injector 140 mg SUBCUT Q14D 60 Days Qty: 5 0RF pregabalin 50 mg capsule 50 mg PO BID 30 Days Qty: 60 2RF Mounjaro 10 mg/0.5 mL pen injector See Rx Instructions .ROUTE .COMPLEX Qty: 2 0RF Dose Instruction: 10 MG (0.5 ML) SUBCUTANEOUSLY EVERY 7 DAYS FOR 30 DAYS 10 MG WEEKLY FOR 1 MONTH AFTER 7.5MG Rx Instructions: 10 MG (0.5 ML) SUBCUTANEOUSLY EVERY 7 DAYS FOR 30 DAYS 10 MG WEEKLY FOR 1 MONTH AFTER 7.5MG aspirin 81 mg Tablet,Delayed Release (Dr/Ec) 81 mg PO QAM Vitamin C 1,000 mg Tablet 2,000 mg PO QAM garlic 1,000 mg Capsule 1,000 mg PO QPM apple cider vinegar 600 mg Capsule 2,400 mg PO QPM L-Lysine 500 mg Tablet 500 mg PO QPM magnesium 200 mg Tablet 400 mg PO QPM Vitamin D3 125 mcg (5,000 unit) Tablet 125 mcg PO QAM Digestive Advantage Advanced 10 billion cell Capsule 20 cell PO QAM Red Reish Mushroom 2,500 mg PO QAM Jardiance 25 mg tablet 25 mg PO QAM Discontinued metoprolol tartrate 25 mg Tablet 25 mg PO BID Discharge Orders: Discharge Order (Routine); Ordered 01/28/23 Ordered By: Maximo Collazo Referrals: Gracie West MD [Physician] - 02/04/23 9:30 am Del Wallace NP [Primary Care Provider] - 02/01/23 10:00 am Discharge Diet: Cardiac and Diabetic Discharge Activity: Increase activity as tolerated Patient Instructions: Diltiazem (By mouth) (Cardizem, Cardizem CD, Cardizem LA, Cardizem SR), Apixaban (By mouth) (Eliquis), A-fib (Atrial Fibrillation) (DC), Heart Healthy Diet (DC), Basic Carbohydrate Counting (DC), Chest Pain Stoplight, Opioid Safety, Stroke Stoplight Activity Restrictions/Additional Instructions: Take all medicine as prescribed Follow-up with your primary care provider 3 to 5 days Follow-up with Dr. West 2 weeks If you notice any bleeding, contact your primary care provider. Discharge Attestations Time Spent in Discharge Care*: greater than 30 min Quality Metrics Clinical Quality Measures [ No reported AMI, CVA or VTE this stay] Coding Level of Care Code 88865 Total time (in minutes) for Discharge: 32 Diagnoses Atrial fibrillation, new onset I48.91 Chest pain R07.9 Coronary artery disease I25.10 Uncontrolled diabetes mellitus with microalbuminuria E11.29; E11.65; R80.9
[2023-01-28] MEDS: apixaban 5 mg Tablet PO (08:42)
[2023-01-28] MEDS: carvedilol 12.5 mg Tablet PO (08:42)
[2023-01-28] MEDS: losartan 50 mg Tablet PO (08:42)
[2023-01-28] MEDS: pregabalin 50 mg Capsule PO (08:42)
[2023-01-28] MEDS: docusate sodium 100 mg Capsule PO (08:42)
--- NOTE | 2023-01-28 08:49 | PC.NURSE ---
Patient refused insulin, wants to take it at home.
--- NOTE | 2023-01-28 08:49 | PC.NURSE ---
Patient received discharge orders, patient verbalized understanding. All IVs removed, prescriptions sent to preferred pharmacy. Patient will exit to main exit. All instructions given to patient.
== END 2023-01-28 09:52 | disposition home or self-care (01) ==
LOC: ER 07:48 → ICU 08:02
PROVIDERS: Admitting Provider Internal Medicine; Emergency Provider Family Medicine; PCP Clinical Nurse Specialist Adult Health; Visit Provider Internal Medicine
DX: I48.91 Unspecified atrial fibrillation (principal); R07.9 Chest pain, unspecified; I25.10 Atherosclerotic heart disease of native coronary artery without angina pectoris; E11.29 Type 2 diabetes mellitus with other diabetic kidney complication; E11.65 Type 2 diabetes mellitus with hyperglycemia; R80.9 Proteinuria, unspecified; E11.40 Type 2 diabetes mellitus with diabetic neuropathy, unspecified; E78.5 Hyperlipidemia, unspecified; I25.2 Old myocardial infarction; Z79.82 Long term (current) use of aspirin
CPT/HCPCS: 36415; 36416; 71045; 80053; 82962; 83735; 84443; 84484; 85025; 93005; 93308; 99285; G0378

== ENCOUNTER → 2023-04-28 10:04 | Outpatient (BNVA) | payer MEDICARE, BC, SELFPAY | PROVIDERS: PCP Clinical Nurse Specialist Adult Health; Visit Provider Dermatology | DX: T14.8XXA Other injury of unspecified body region, initial encounter (principal); L71.8 Other rosacea; L72.0 Epidermal cyst; X58.XXXA Exposure to other specified factors, initial encounter | CPT/HCPCS: 99213 ==

== ENCOUNTER → 2023-08-11 11:24 | Outpatient (BNVA) | payer MEDICARE, BC, SELFPAY | PROVIDERS: PCP Clinical Nurse Specialist Adult Health; Visit Provider Internal Medicine Cardiovascular Disease | DX: I25.10 Atherosclerotic heart disease of native coronary artery without angina pectoris (principal); I10 Essential (primary) hypertension; E78.2 Mixed hyperlipidemia; I48.91 Unspecified atrial fibrillation | CPT/HCPCS: 99214 ==

== ENCOUNTER → 2023-11-02 11:31 | Outpatient (BNVA) | payer MEDICARE, BC, SELFPAY | PROVIDERS: PCP Clinical Nurse Specialist Adult Health; Visit Provider Specialist | DX: M25.512 Pain in left shoulder; G89.29 Other chronic pain | CPT/HCPCS: 73030; 99204 ==

== ENCOUNTER → 2023-11-08 09:52 | Outpatient (BNVA) | payer MEDICARE, BC, SELFPAY | PROVIDERS: PCP Clinical Nurse Specialist Adult Health; Visit Provider Clinical Nurse Specialist Adult Health | DX: E11.29 Type 2 diabetes mellitus with other diabetic kidney complication (principal); E11.65 Type 2 diabetes mellitus with hyperglycemia; R80.9 Proteinuria, unspecified; E11.9 Type 2 diabetes mellitus without complications | CPT/HCPCS: 80053; 80061; 82043; 83036 ==

== ENCOUNTER → 2023-11-09 10:45 | Outpatient (BNVA) | payer MEDICARE, BC, SELFPAY | PROVIDERS: PCP Clinical Nurse Specialist Adult Health; Visit Provider Internal Medicine | DX: E11.42 Type 2 diabetes mellitus with diabetic polyneuropathy (principal); E11.29 Type 2 diabetes mellitus with other diabetic kidney complication; E11.65 Type 2 diabetes mellitus with hyperglycemia; R80.9 Proteinuria, unspecified; E78.2 Mixed hyperlipidemia; E11.59 Type 2 diabetes mellitus with other circulatory complications; I25.10 Atherosclerotic heart disease of native coronary artery without angina pectoris; K76.0 Fatty (change of) liver, not elsewhere classified; E66.01 Morbid (severe) obesity due to excess calories; Z68.41 Body mass index [BMI] 40.0-44.9, adult; Z78.9 Other specified health status; E11.319 Type 2 diabetes mellitus with unspecified diabetic retinopathy without macular edema; Z79.4 Long term (current) use of insulin; Z79.84 Long term (current) use of oral hypoglycemic drugs | CPT/HCPCS: 99214 ==

== ENCOUNTER 2023-12-08 13:33 | Outpatient (CLI) | payer MEDICARE, BC, SELFPAY ==
--- NOTE | 2023-12-08 13:45 | MR_ITS ---
WS: [id number] MRI LEFT SHOULDER NONCONTRAST TECHNIQUE: Sagittal T2, coronal T1, T2 and proton density imaging. Axial gradient PDE imaging. CLINICAL INFORMATION: left shoulder pain COMPARISON: None. FINDINGS: Moderate degenerative arthritis AC joint with slight subacromial spurring. Slight impingement distal supraspinatus. Trace subacromial fluid. Edema at the AC joint. Tendinopathy in the supraspinatus and infraspinatus distally. Tiny insertional tear distal supraspinatus. Tiny undersurface tear supraspina tus at the level of the acromion. Normal teres minor. Chronic thinning of the subscapularis which appears intact. Biceps tendon appears intact within the bicipital groove. Advanced degenerative narrowing of the glenohumeral articulation . Intra-articular biceps tendon appears intact. MR/MR shoulder LT wo con* [id number] IMPRESSION: 1. Moderate degenerative arthritis AC joint with fluid and edema. Slight impin gement distal supraspinatus. 2. Tendinopathy distal supraspinatus and infraspinatus. 3. Small undersurface tear supraspinatus at the level of the acromion with add itional tiny distal insertional tear. 4. Rotator cuff is otherwise intact. 5. Biceps tendon intact within the bicipital groove. 6. Advanced degenerative narrowing of the glenohumeral articulation.
== END 2023-12-08 13:34 | disposition home or self-care (01) ==
LOC: RAD 13:35
PROVIDERS: PCP Clinical Nurse Specialist Adult Health; Visit Provider Specialist
DX: S46.012A Strain of muscle(s) and tendon(s) of the rotator cuff of left shoulder, initial encounter (principal); M75.92 Shoulder lesion, unspecified, left shoulder; M19.012 Primary osteoarthritis, left shoulder
CPT/HCPCS: 73221

== ENCOUNTER → 2023-12-21 14:59 | Outpatient (BNVA) | payer MEDICARE, BC, SELFPAY | PROVIDERS: PCP Clinical Nurse Specialist Adult Health; Visit Provider Specialist | DX: M25.812 Other specified joint disorders, left shoulder; M19.012 Primary osteoarthritis, left shoulder | CPT/HCPCS: 20610; 99214; J1100; J2795; J3301 ==

== ENCOUNTER → 2024-01-26 08:20 | Outpatient (BNVA) | payer MEDICARE, BC, SELFPAY | PROVIDERS: PCP Clinical Nurse Specialist Adult Health; Visit Provider Clinical Nurse Specialist Adult Health | DX: E11.42 Type 2 diabetes mellitus with diabetic polyneuropathy (principal); E11.29 Type 2 diabetes mellitus with other diabetic kidney complication; E11.65 Type 2 diabetes mellitus with hyperglycemia; R80.9 Proteinuria, unspecified; E78.2 Mixed hyperlipidemia; E11.59 Type 2 diabetes mellitus with other circulatory complications; I25.10 Atherosclerotic heart disease of native coronary artery without angina pectoris | CPT/HCPCS: 80053; 80061; 82043; 83036 ==

== ENCOUNTER → 2024-02-02 10:10 | Outpatient (BNVA) | payer MEDICARE, BC, SELFPAY | PROVIDERS: PCP Clinical Nurse Specialist Adult Health; Visit Provider Internal Medicine | DX: E11.29 Type 2 diabetes mellitus with other diabetic kidney complication (principal); E11.65 Type 2 diabetes mellitus with hyperglycemia; R80.9 Proteinuria, unspecified; E78.2 Mixed hyperlipidemia; E11.59 Type 2 diabetes mellitus with other circulatory complications; I25.10 Atherosclerotic heart disease of native coronary artery without angina pectoris; K76.0 Fatty (change of) liver, not elsewhere classified; E11.42 Type 2 diabetes mellitus with diabetic polyneuropathy; E66.01 Morbid (severe) obesity due to excess calories; Z68.41 Body mass index [BMI] 40.0-44.9, adult; Z78.9 Other specified health status; E11.319 Type 2 diabetes mellitus with unspecified diabetic retinopathy without macular edema; R25.2 Cramp and spasm; Z79.84 Long term (current) use of oral hypoglycemic drugs; Z79.4 Long term (current) use of insulin; Z79.85 Long-term (current) use of injectable non-insulin antidiabetic drugs | CPT/HCPCS: 99214 ==

== ENCOUNTER → 2024-04-06 11:00 | Outpatient (BNVA) | payer MEDICARE, BC, SELFPAY | PROVIDERS: PCP Clinical Nurse Specialist Adult Health; Visit Provider Specialist | DX: M19.012 Primary osteoarthritis, left shoulder (principal); Z71.89 Other specified counseling | CPT/HCPCS: 20610; J1100; J2795; J3301 ==

== ENCOUNTER → 2024-05-15 08:09 | Outpatient (BNVA) | payer MEDICARE, SELFPAY | PROVIDERS: PCP Clinical Nurse Specialist Adult Health; Visit Provider Clinical Nurse Specialist Adult Health | DX: E11.29 Type 2 diabetes mellitus with other diabetic kidney complication (principal); E11.65 Type 2 diabetes mellitus with hyperglycemia; R80.9 Proteinuria, unspecified; E78.2 Mixed hyperlipidemia; E11.42 Type 2 diabetes mellitus with diabetic polyneuropathy | CPT/HCPCS: 80053; 80061; 82043; 83036; 83540 ==

== ENCOUNTER → 2024-05-16 11:56 | Outpatient (BNVA) | payer MEDICARE, SELFPAY | PROVIDERS: PCP Clinical Nurse Specialist Adult Health; Visit Provider Internal Medicine | DX: E11.29 Type 2 diabetes mellitus with other diabetic kidney complication (principal); E11.65 Type 2 diabetes mellitus with hyperglycemia; R80.9 Proteinuria, unspecified; E78.2 Mixed hyperlipidemia; E11.59 Type 2 diabetes mellitus with other circulatory complications; I25.10 Atherosclerotic heart disease of native coronary artery without angina pectoris; K76.0 Fatty (change of) liver, not elsewhere classified; E11.42 Type 2 diabetes mellitus with diabetic polyneuropathy; E66.01 Morbid (severe) obesity due to excess calories; Z68.41 Body mass index [BMI] 40.0-44.9, adult; Z78.9 Other specified health status; E11.319 Type 2 diabetes mellitus with unspecified diabetic retinopathy without macular edema; R25.2 Cramp and spasm | CPT/HCPCS: 99214 ==

== ENCOUNTER 2024-05-18 12:40 | Outpatient (CLI) | payer MEDICARE, SELFPAY ==
[2024-05-18 13:33] LABS: Alanine Aminotransferase 35 U/L (0-33); Albumin Level 3.8 g/dL (3.5-5.2); Alkaline Phosphatase 105 U/L (35-105); Anion Gap 16.5 (5-19); Aspartate Amino Transferase 35 U/L (0-32); Blood Urea Nitrogen 27 mg/dL (8-23); Calcium 8.6 mg/dL (8.5-10.5); Carbon Dioxide 24 mmol/L (22-29); Chloride 96 mmol/L (98-107); Globulin 3.1 g/dL (1.3-4.6); Glucose 178 mg/dL (65-115); Osmolality Calculated 284 mOsm/kg (285-295); Potassium 4.5 mmol/L (3.5-5.1); Sodium 132 mmol/L (136-145); Total Bilirubin 0.5 mg/dL (0.15-1.2); Total Protein 6.9 g/dL (6.6-8.7)
[2024-05-19 11:19] LABS: C-Peptide 4.45 ng/mL (0.80-3.85)
== END 2024-05-18 12:41 | disposition home or self-care (01) ==
LOC: LAB 12:41
PROVIDERS: PCP Clinical Nurse Specialist Adult Health; Visit Provider Internal Medicine
DX: E11.29 Type 2 diabetes mellitus with other diabetic kidney complication (principal); E11.65 Type 2 diabetes mellitus with hyperglycemia; R80.9 Proteinuria, unspecified
CPT/HCPCS: 36415; 80053; 84681; 86337; 86341

== ENCOUNTER → 2024-07-13 09:32 | Outpatient (BNVA) | payer MEDICARE, SELFPAY | PROVIDERS: PCP Family Medicine; Visit Provider Specialist | DX: M19.012 Primary osteoarthritis, left shoulder (principal) | CPT/HCPCS: 20610; J1100; J2795; J3301; J9999 ==

== ENCOUNTER 2024-08-10 08:17 | Outpatient (CLI) | payer MEDICARE, SELFPAY ==
[2024-08-10 09:27] LABS: Alanine Aminotransferase 38 U/L (0-33); Albumin Level 3.9 g/dL (3.5-5.2); Alkaline Phosphatase 176 U/L (35-105); Aspartate Amino Transferase 31 U/L (0-32); Blood Urea Nitrogen 29 mg/dL (8-23); Calcium 8.8 mg/dL (8.5-10.5); Carbon Dioxide 27 mmol/L (22-29); Chloride 101 mmol/L (98-107); Chol HDL Ratio 2.71 mg/dL (0.0-4.40); Cholesterol 160 mg/dL (0-200); Glucose 253 mg/dL (65-115); HDL Cholesterol 59 mg/dL (60-100); LDL Cholesterol Calculated 67 mg/dL (50-129); LDL HDL Ratio 1.14 RATIO (0.00-3.22); Osmolality Calculated 302 mOsm/kg (285-295); Sodium 139 mmol/L (136-145); Total Bilirubin 0.3 mg/dL (0.15-1.2); Total Protein 6.9 g/dL (6.6-8.7); Triglycerides 171 mg/dL (0-150)
[2024-08-10 09:31] LABS: Estmated Average Glucose 223; Hemoglobin A1C 9.4 % (4.0-6.0)
[2024-08-10 09:33] LABS: Creatinine Urine, Random 55 mg/dL (28-217); Microalbumin Random Urine 23 ug/dL (0-20)
[2024-08-10 09:34] LABS: Microalbum Creatinine Ratio Ur 418 mg/dL (0-20)
== END 2024-08-10 08:18 | disposition home or self-care (01) ==
PROVIDERS: PCP Family Medicine; Visit Provider Internal Medicine
DX: E11.29 Type 2 diabetes mellitus with other diabetic kidney complication (principal); E11.65 Type 2 diabetes mellitus with hyperglycemia; R80.9 Proteinuria, unspecified; E78.2 Mixed hyperlipidemia; E11.42 Type 2 diabetes mellitus with diabetic polyneuropathy
CPT/HCPCS: 36415; 80053; 80061; 82044; 83036

== ENCOUNTER → 2024-08-14 09:05 | Outpatient (BNVA) | payer MEDICARE, SELFPAY | PROVIDERS: PCP Clinical Nurse Specialist Adult Health; Visit Provider Internal Medicine | DX: E11.42 Type 2 diabetes mellitus with diabetic polyneuropathy (principal); E78.2 Mixed hyperlipidemia; E11.29 Type 2 diabetes mellitus with other diabetic kidney complication; E11.65 Type 2 diabetes mellitus with hyperglycemia; E11.319 Type 2 diabetes mellitus with unspecified diabetic retinopathy without macular edema; I25.10 Atherosclerotic heart disease of native coronary artery without angina pectoris; E11.59 Type 2 diabetes mellitus with other circulatory complications | CPT/HCPCS: 99214 ==

== ENCOUNTER → 2024-08-22 11:10 | Outpatient (BNVA) | payer MEDICARE, SELFPAY | PROVIDERS: PCP Family Medicine; Visit Provider Internal Medicine Cardiovascular Disease | DX: I25.10 Atherosclerotic heart disease of native coronary artery without angina pectoris (principal); I10 Essential (primary) hypertension; I48.91 Unspecified atrial fibrillation; Z79.82 Long term (current) use of aspirin; E78.2 Mixed hyperlipidemia; E66.01 Morbid (severe) obesity due to excess calories; Z68.35 Body mass index [BMI] 35.0-35.9, adult; Z95.5 Presence of coronary angioplasty implant and graft; I25.2 Old myocardial infarction | CPT/HCPCS: 99214 ==

== ENCOUNTER → 2024-09-06 11:09 | Outpatient (BNVA) | payer MEDICARE, SELFPAY | PROVIDERS: PCP Family Medicine; Visit Provider Family Medicine | DX: Z11.4 Encounter for screening for human immunodeficiency virus [HIV] (principal); Z11.59 Encounter for screening for other viral diseases | CPT/HCPCS: 86803; 87806 ==

== ENCOUNTER 2024-09-17 13:18 | Outpatient (CLI) | payer MEDICARE, SELFPAY ==
--- NOTE | 2024-09-17 13:20 | MM_ITS ---
WS: [id number] BILATERAL 3D TOMOSYNTHESIS DIGITAL SCREENING MAMMOGRAPHY WITH CAD CLINICAL INFORMATION: screening HISTORY: Screening mammogram. No current complaints. COMPARISON: 2020 TECHNIQUE: Bilateral CC and MLO views. FINDINGS: Scattered fibroglandular densities bilaterally. No suspicious focal mass, asymmetry, calcifications, or architectural distortion. No evidence of malignancy. Vascular calcification. A few incidental punctate calcifications. MM/MM scr tomosynthesis [id number] IMPRESSION: DENSITY: There are scattered areas of fibroglandular density. BI-RADS: 2 - Benign. FOLLOW UP: 1 Year Follow-up Recommend return to annual screening mammography.
== END 2024-09-17 13:19 | disposition home or self-care (01) ==
LOC: RAD 13:20
PROVIDERS: PCP Family Medicine; Visit Provider Family Medicine
DX: Z12.31 Encounter for screening mammogram for malignant neoplasm of breast (principal); R92.323 Mammographic fibroglandular density, bilateral breasts; R92.1 Mammographic calcification found on diagnostic imaging of breast
CPT/HCPCS: 77063; 77067

== ENCOUNTER 2024-09-20 14:55 | Outpatient (CLI) | payer MEDICARE, SELFPAY ==
--- NOTE | 2024-09-20 15:00 | XR_ITS ---
WS: [id number] SCREENING DEXA SCAN [employer] CLINICAL INFORMATION: screening COMPARISON: None. FINDINGS: The L1-L4 bone mineral density measures 1.268. This corresponds to a T score score of 0.6 and Z score of 1.0. Left femoral neck bone mineral density measures 1.045 g/cm2. This corresponds to a T score of 0.3 and Z score of 0.7. Right femoral neck bone mineral density measures 1.031 g/cm2. This corresponds to a T score 0.2of and Z score of 0.6. Mean femoral neck bone mineral density measures 1.038 g/cm2. This corresponds to a T score of 0.2 and Z score of 0.6. XR/XR DEXA axial skeleton* [id number] IMPRESSION: Normal bone mineralization. Patient's FRAX calculated 10 year probability for major osteoporotic fracture i s 6.3% and osteoporotic hip fracture is 0.2%.
== END 2024-09-20 14:56 | disposition home or self-care (01) ==
LOC: RAD 14:56
PROVIDERS: PCP Family Medicine; Visit Provider Family Medicine
DX: Z78.0 Asymptomatic menopausal state (principal)
CPT/HCPCS: 77080

== ENCOUNTER → 2024-10-26 09:45 | Outpatient (BNVA) | payer MEDICARE, SELFPAY | PROVIDERS: PCP Family Medicine; Visit Provider Specialist | DX: M19.012 Primary osteoarthritis, left shoulder (principal) | CPT/HCPCS: 20610; J1100; J2795; J3301; J9999 ==

== ENCOUNTER → 2025-02-08 08:55 | Outpatient (BNVA) | payer MEDICARE, SELFPAY | PROVIDERS: PCP Family Medicine; Visit Provider Specialist | DX: M19.012 Primary osteoarthritis, left shoulder (principal) | CPT/HCPCS: 20610; J1100; J2795; J3301; J9999 ==

== ENCOUNTER → 2025-04-02 15:37 | Outpatient (BNVA) | payer MEDICARE, SELFPAY | PROVIDERS: PCP Family Medicine; Visit Provider Internal Medicine Cardiovascular Disease | DX: I25.10 Atherosclerotic heart disease of native coronary artery without angina pectoris (principal); I10 Essential (primary) hypertension; E78.5 Hyperlipidemia, unspecified; I48.91 Unspecified atrial fibrillation; Z79.82 Long term (current) use of aspirin; Z95.5 Presence of coronary angioplasty implant and graft; I25.2 Old myocardial infarction; R07.9 Chest pain, unspecified; I49.8 Other specified cardiac arrhythmias; I44.0 Atrioventricular block, first degree; R94.31 Abnormal electrocardiogram [ECG] [EKG] | CPT/HCPCS: 93005; 99214 ==